=== PATIENT | female | born 1945 | race African-American/Black ===

== ENCOUNTER 2020-11-12 11:15 | Inpatient (IN) | payer OTHER, SELFPAY ==
[~2020-11-12] VITALS: Ht 162.6 cm; Wt 79.8 kg
[2020-11-12 11:18] VITALS: BP_SYST 121
[2020-11-12] MEDS ORDERED: NACL 0.9% 1,000 ML IV ONE (11:45)
[2020-11-12 12:45] LABS: ANION GAP 13 (5-15); CALCIUM 8.6 mg/dL (8.4-11.0); CHLORIDE 105 mmol/L (98-107); CREATININE 1.57 mg/dL (0.55-1.30); GLUCOSE 220 mg/dL (70-99); POTASSIUM 5.3 mmol/L (3.5-5.1); SODIUM SERUM 140 mmol/L (136-145); UREA NITROGEN, BLOOD 47 mg/dL (8-21)
[2020-11-12] MEDS ORDERED: KETOROLAC TROMETHAMINE 30 MG VIAL IVP ONE (12:45)
[2020-11-12 12:51] LABS: ALANINE AMINOTRANSFERASE 48 U/L (12-78); ALBUMIN 3.3 g/dL (3.4-4.8); ASPARTATE AMINOTRANSFERASE 21 U/L (10-37); TOTAL BILIRUBIN 0.8 mg/dL (0.0-1.0)
[2020-11-12] MEDS ORDERED: DIPHENHYDRAMINE INJ 50 MG/ML VIAL IVP ONE (13:00)
[2020-11-12] MEDS ORDERED: HALOPERIDOL LACTATE 5 MG/ML VIAL IVP ONE (13:00)
[2020-11-12 13:04] LABS: BASOPHILS # (AUTO) 0.1 K/uL (0.0-0.2); BASOPHILS % (AUTO) 0.7 % (0.0-2.0); EOSINOPHILS % (AUTO) 0.5 % (0.0-4.0); HEMATOCRIT 30.5 % (36-48); LYMPHOCYTES # (AUTO) 1.2 K/uL (1.0-5.5); LYMPHOCYTES % (AUTO) 11.8 % (20.5-51.5); MEAN CORPUSCULAR HEMOGLOBIN 29 pg (27-31); MEAN CORPUSCULAR HGB CONC 33 % (32-36); MEAN CORPUSCULAR VOLUME 90 fL (79.0-98.0); MONOCYTES # (AUTO) 0.5 K/uL (0.0-1.0); NEUTROPHILS # (AUTO) 8.7 K/uL (1.8-7.7); PLATELET COUNT (AUTO) 282 K/uL (130-430); RED BLOOD CELL COUNT(AUTO) 3.41 MIL/uL (4.2-6.2); RED CELL DISTRIBUTION WIDTH 18.4 % (9.0-15.0); WHITE BLOOD COUNT (AUTO) 10.6 K/uL (4.8-10.8)
[2020-11-12 13:59] LABS: BILIRUBIN,URINE NEGATIVE (NEGATIVE); BLOOD, URINE NEGATIVE (NEGATIVE); COLOR,URINE YELLOW (YELLOW); GLUCOSE,URINE NEGATIVE (NEGATIVE); KETONES,URINE NEGATIVE (NEGATIVE); LEUKOCYTE ESTERASE ,URINE NEGATIVE (NEGATIVE); NITRITE, URINE NEGATIVE (NEGATIVE); PH,URINE 5.5 (5.0-8.0); PROTEIN URINE NEGATIVE (NEGATIVE); UROBILINOGEN,URINE 0.2 (0.2-1.0)
[2020-11-12 14:01] LABS: CLARITY/URINE SLIGHTLY HAZY (CLEAR)
[2020-11-12 14:18] LABS: INR 1.2 (0.8-1.2); PROTHROMBIN TIME 11.9 SECS (9.5-12.5)
[2020-11-12] MEDS ORDERED: LIP40 PO (15:16)
[2020-11-12] MEDS ORDERED: LORA-258 PO (15:16)
[2020-11-12] MEDS ORDERED: DOCU-144 PO (15:16)
[2020-11-12] MEDS ORDERED: NOR10 PO (15:16)
[2020-11-12] MEDS ORDERED: ASCO500T20 PO (15:16)
[2020-11-12] MEDS ORDERED: ACET325T PO (15:16)
[2020-11-12] MEDS ORDERED: ZINC220T4 PO (15:16)
[2020-11-12] MEDS ORDERED: METO25TA6 PO (15:16)
[2020-11-12] MEDS ORDERED: VITD2000 PO (15:16)
[2020-11-12] MEDS ORDERED: APIX2.5T PO (15:16)
[2020-11-12 16:24] VITALS: BP_SYST 132
[2020-11-12 16:49] VITALS: BP_SYST 132
[2020-11-12] MEDS ORDERED: LORazepam 1 MG TABLET PO PRN (17:30)
[2020-11-12] MEDS ORDERED: SODIUM POLYSTYRENE SULFONATE 15 GM/60 ML UDBTL PO ONE (17:30)
[2020-11-12] MEDS ORDERED: DEXTROSE 50% JECT 50 ML DISP.SYRIN IVP PRN (18:30)
[2020-11-12 20:45] VITALS: BP_SYST 119
[2020-11-12] MEDS ORDERED: AZITHROMYCIN 500 MG in NS 250 ML IV SCH (21:00)
[2020-11-12] MEDS: APIXABAN 2.5 MG TABLET PO SCH (21:00)
[2020-11-12] MEDS ORDERED: cefTRIAXone 1 GM in D5W 50 ML IV SCH (21:00)
[2020-11-12] MEDS: amLODIPine BESYLATE 10 MG TABLET PO SCH (21:00)
[2020-11-12] MEDS: METOPROLOL TARTRATE 25 MG TABLET PO SCH (21:00)
[2020-11-12] MEDS: ATORVASTATIN 20 MG TABLET PO SCH (21:00)
[2020-11-12 21:17] LABS: BODY FLUID SOURCE/ TYPE PLEURAL; SOURCE/TYPE ,BODY FLUID PLEURAL
[2020-11-12 21:19] LABS: APPEARANCE,SPUN,BODY FLUID CLEAR (CLEAR)
[2020-11-12 21:21] LABS: BF APPEARANCE UNSPUN BLOODY (CLEAR); BODY FLUID COLOR RED (LT YELLOW); BODY FLUID TOTAL VOLUME 875 mL
[2020-11-12 21:22] LABS: LYMPHOCYTES, BODY FLUID 31 %; NEUTROPHIL, BODY FLUID 59 %; RBC, BODY FLUID 5197.2 /uL; WBC, BODY FLUID 1622 /uL
[2020-11-12 21:24] LABS: MONOCYTES,BODY FLUID 8 %
[2020-11-12 21:26] LABS: EOSINOPHIL, BODY FLUID 0 %
[2020-11-12] MEDS ORDERED: cefTRIAXone 1 GM IVPB PREMIX 50 ML IV ONE (21:28)
[2020-11-12] MEDS ORDERED: AZITHROMYCIN 500 MG/VIAL (ZITHROMAX) IV ONE (21:28)
[2020-11-12] MEDS ORDERED: ALBUTEROL SULFATE 0.083% 2.5 MG/3 ML VIAL.NEB INH PRN (22:45)
[2020-11-12] MEDS: INSULIN REGULAR, HUMAN 100 UNITS/ML, 10 ML VIAL (humuLIN R) SUBCUT PRN (22:56)
[2020-11-13] MEDS ORDERED: HALOPERIDOL LACTATE 5 MG/ML VIAL IM PRN (00:30)
[2020-11-13 00:45] VITALS: BP_SYST 119
[2020-11-13 07:13] LABS: BASOPHILS # (AUTO) 0.1 K/uL (0.0-0.2); BASOPHILS % (AUTO) 0.6 % (0.0-2.0); HEMOGLOBIN 10.3 g/dL (12.0-16.0); LYMPHOCYTES # (AUTO) 0.6 K/uL (1.0-5.5); LYMPHOCYTES % (AUTO) 6.5 % (20.5-51.5); MEAN CORPUSCULAR HEMOGLOBIN 29 pg (27-31); MEAN CORPUSCULAR HGB CONC 32 % (32-36); MEAN CORPUSCULAR VOLUME 90 fL (79.0-98.0); MONOCYTES # (AUTO) 0.3 K/uL (0.0-1.0); MONOCYTES % (AUTO) 2.6 % (1.7-9.3); NEUTROPHILS # (AUTO) 8.9 K/uL (1.8-7.7); NEUTROPHILS % (AUTO) 90.3 % (40.0-70.0); PLATELET COUNT (AUTO) 286 K/uL (130-430); RED BLOOD CELL COUNT(AUTO) 3.57 MIL/uL (4.2-6.2); RED CELL DISTRIBUTION WIDTH 18.9 % (9.0-15.0); WHITE BLOOD COUNT (AUTO) 9.9 K/uL (4.8-10.8)
[2020-11-13 07:35] LABS: TOTAL IRON BIND. CAPACITY 242 ug/dL (250-450)
[2020-11-13 07:38] LABS: ALANINE AMINOTRANSFERASE 50 U/L (12-78); ALBUMIN 3.2 g/dL (3.4-4.8); ANION GAP 12 (5-15); ASPARTATE AMINOTRANSFERASE 24 U/L (10-37); CALCIUM 8.4 mg/dL (8.4-11.0); CHLORIDE 109 mmol/L (98-107); CREATININE 1.48 mg/dL (0.55-1.30); GLUCOSE 165 mg/dL (70-99); PHOSPHORUS 4.7 mg/dL (2.7-4.5); POTASSIUM 5.4 mmol/L (3.5-5.1); SODIUM SERUM 143 mmol/L (136-145); TOTAL BILIRUBIN 0.6 mg/dL (0.0-1.0); UREA NITROGEN, BLOOD 49 mg/dL (8-21)
[2020-11-13 08:00] VITALS: BP_SYST 130
[2020-11-13] MEDS ORDERED: SODIUM POLYSTYRENE SULFONATE 15 GM/60 ML UDBTL ONE (08:08)
[2020-11-13] MEDS ORDERED: SODIUM POLYSTYRENE SULFONATE 15 GM/60 ML UDBTL PO ONE ×2 (08:15→08:45)
[2020-11-13] MEDS: QUEtiapine FUMARATE 25 MG TABLET PO SCH ×2 (08:51→22:03)
[2020-11-13] MEDS: CHOLECALCIFEROL (VITAMIN D3) 2,000 UNIT TABLET PO SCH (08:51)
[2020-11-13] MEDS: ASCORBIC ACID 500 MG TABLET PO SCH (08:51)
[2020-11-13] MEDS: DOCUSATE SODIUM 100 MG CAPSULE PO SCH (08:51)
[2020-11-13] MEDS: METOPROLOL TARTRATE 25 MG TABLET PO SCH ×2 (08:51→22:04)
[2020-11-13] MEDS: APIXABAN 2.5 MG TABLET PO SCH ×2 (08:52→22:05)
[2020-11-13] MEDS ORDERED: FUROSEMIDE 40 MG TABLET PO ONE (09:00)
[2020-11-13] MEDS: FLUCONAZOLE 200 mg/ NS 100 ML IV SCH (11:47)
[2020-11-13 12:01] VITALS: BP_SYST 145
[2020-11-13] MEDS: D5W 1,000 ML IV SCH (12:39)
[2020-11-13 15:05] VITALS: BP_SYST 142
[2020-11-13 20:19] VITALS: BP_SYST 154
[2020-11-13] MEDS: ATORVASTATIN 20 MG TABLET PO SCH (22:03)
[2020-11-13] MEDS: amLODIPine BESYLATE 10 MG TABLET PO SCH (22:04)
[2020-11-13] MEDS: INSULIN REGULAR, HUMAN 100 UNITS/ML, 10 ML VIAL (humuLIN R) SUBCUT PRN (22:06)
[2020-11-13] MEDS: CEFEPIME 0.5 GM in D5W 50 ML IV SCH (22:16)
[2020-11-14 00:46] VITALS: BP_SYST 152
[2020-11-14 07:19] LABS: BASOPHILS # (AUTO) 0.1 K/uL (0.0-0.2); BASOPHILS % (AUTO) 0.6 % (0.0-2.0); HEMATOCRIT 29.5 % (36-48); HEMOGLOBIN 9.4 g/dL (12.0-16.0); LYMPHOCYTES # (AUTO) 0.8 K/uL (1.0-5.5); LYMPHOCYTES % (AUTO) 5.4 % (20.5-51.5); MEAN CORPUSCULAR HEMOGLOBIN 29 pg (27-31); MEAN CORPUSCULAR HGB CONC 32 % (32-36); MEAN CORPUSCULAR VOLUME 90 fL (79.0-98.0); MONOCYTES # (AUTO) 0.7 K/uL (0.0-1.0); MONOCYTES % (AUTO) 4.6 % (1.7-9.3); NEUTROPHILS # (AUTO) 13.1 K/uL (1.8-7.7); NEUTROPHILS % (AUTO) 89.4 % (40.0-70.0); PLATELET COUNT (AUTO) 279 K/uL (130-430); RED BLOOD CELL COUNT(AUTO) 3.26 MIL/uL (4.2-6.2); RED CELL DISTRIBUTION WIDTH 19.1 % (9.0-15.0); WHITE BLOOD COUNT (AUTO) 14.7 K/uL (4.8-10.8)
[2020-11-14 07:57] LABS: ALANINE AMINOTRANSFERASE 57 U/L (12-78); ANION GAP 10 (5-15); ASPARTATE AMINOTRANSFERASE 30 U/L (10-37); CALCIUM 8.3 mg/dL (8.4-11.0); CHLORIDE 108 mmol/L (98-107); CREATININE 1.35 mg/dL (0.55-1.30); GLUCOSE 170 mg/dL (70-99); POTASSIUM 5.4 mmol/L (3.5-5.1); SODIUM SERUM 140 mmol/L (136-145); THYROID STIMULATING HORMONE 3.91 uIu/mL (0.36-3.74); TOTAL BILIRUBIN 0.7 mg/dL (0.0-1.0); UREA NITROGEN, BLOOD 52 mg/dL (8-21)
[2020-11-14 08:00] VITALS: BP_SYST 99
[2020-11-14] MEDS: DOCUSATE SODIUM 100 MG CAPSULE PO SCH (08:23)
[2020-11-14] MEDS: QUEtiapine FUMARATE 25 MG TABLET PO SCH ×2 (08:23→21:53)
[2020-11-14] MEDS: CHOLECALCIFEROL (VITAMIN D3) 2,000 UNIT TABLET PO SCH (08:23)
[2020-11-14] MEDS: ASCORBIC ACID 500 MG TABLET PO SCH (08:23)
[2020-11-14] MEDS: FUROSEMIDE 40 MG TABLET PO SCH (08:24)
[2020-11-14] MEDS: METOPROLOL TARTRATE 25 MG TABLET PO SCH ×2 (08:24→21:00)
[2020-11-14] MEDS ORDERED: SODIUM POLYSTYRENE SULFONATE 15 GM/60 ML UDBTL RC ONE (10:00)
[2020-11-14] MEDS: APIXABAN 2.5 MG TABLET PO SCH ×2 (10:21→21:52)
[2020-11-14] MEDS: CEFEPIME 0.5 GM in D5W 50 ML IV SCH ×2 (10:24→21:51)
[2020-11-14] MEDS: FLUCONAZOLE 200 mg/ NS 100 ML IV SCH (10:24)
[2020-11-14 12:14] VITALS: BP_SYST 143
[2020-11-14] MEDS: D5W 1,000 ML IV SCH (12:51)
[2020-11-14 14:42] LABS: BILIRUBIN,URINE NEGATIVE (NEGATIVE); BLOOD, URINE NEGATIVE (NEGATIVE); CLARITY/URINE CLEAR (CLEAR); COLOR,URINE YELLOW (YELLOW); GLUCOSE,URINE NEGATIVE (NEGATIVE); KETONES,URINE NEGATIVE (NEGATIVE); LEUKOCYTE ESTERASE ,URINE NEGATIVE (NEGATIVE); NITRITE, URINE NEGATIVE (NEGATIVE); PH,URINE 5.5 (5.0-8.0); PROTEIN URINE NEGATIVE (NEGATIVE); UROBILINOGEN,URINE 0.2 (0.2-1.0)
[2020-11-14 16:10] VITALS: BP_SYST 106
[2020-11-14 20:00] VITALS: BP_SYST 128
[2020-11-14] MEDS: amLODIPine BESYLATE 10 MG TABLET PO SCH (21:00)
[2020-11-14] MEDS: ATORVASTATIN 20 MG TABLET PO SCH (21:52)
[2020-11-14] MEDS: INSULIN REGULAR, HUMAN 100 UNITS/ML, 10 ML VIAL (humuLIN R) SUBCUT PRN (21:53)
[2020-11-15] MEDS: INSULIN REGULAR, HUMAN 100 UNITS/ML, 10 ML VIAL (humuLIN R) SUBCUT PRN ×2 (00:20→11:39)
[2020-11-15 01:00] VITALS: BP_SYST 151
[2020-11-15 06:38] LABS: BASOPHILS # (AUTO) 0.1 K/uL (0.0-0.2); BASOPHILS % (AUTO) 0.5 % (0.0-2.0); EOSINOPHILS % (AUTO) 0.2 % (0.0-4.0); HEMATOCRIT 31.2 % (36-48); HEMOGLOBIN 9.9 g/dL (12.0-16.0); LYMPHOCYTES # (AUTO) 0.8 K/uL (1.0-5.5); LYMPHOCYTES % (AUTO) 6.2 % (20.5-51.5); MEAN CORPUSCULAR HEMOGLOBIN 29 pg (27-31); MEAN CORPUSCULAR HGB CONC 32 % (32-36); MEAN CORPUSCULAR VOLUME 91 fL (79.0-98.0); MONOCYTES # (AUTO) 0.9 K/uL (0.0-1.0); MONOCYTES % (AUTO) 6.8 % (1.7-9.3); NEUTROPHILS % (AUTO) 86.3 % (40.0-70.0); PLATELET COUNT (AUTO) 247 K/uL (130-430); RED BLOOD CELL COUNT(AUTO) 3.44 MIL/uL (4.2-6.2); RED CELL DISTRIBUTION WIDTH 19.4 % (9.0-15.0); WHITE BLOOD COUNT (AUTO) 12.8 K/uL (4.8-10.8)
[2020-11-15 07:50] LABS: ANION GAP 12 (5-15); CALCIUM 8.6 mg/dL (8.4-11.0); CHLORIDE 108 mmol/L (98-107); CREATININE 1.38 mg/dL (0.55-1.30); GLUCOSE 165 mg/dL (70-99); POTASSIUM 4.9 mmol/L (3.5-5.1); SODIUM SERUM 141 mmol/L (136-145); UREA NITROGEN, BLOOD 54 mg/dL (8-21)
[2020-11-15 08:00] VITALS: BP_SYST 141
[2020-11-15] MEDS: CEFEPIME 0.5 GM in D5W 50 ML IV SCH ×2 (10:04→21:31)
[2020-11-15] MEDS: FUROSEMIDE 40 MG TABLET PO SCH (10:04)
[2020-11-15] MEDS: DOCUSATE SODIUM 100 MG CAPSULE PO SCH (10:04)
[2020-11-15] MEDS: METOPROLOL TARTRATE 25 MG TABLET PO SCH ×2 (10:05→21:35)
[2020-11-15] MEDS: ASCORBIC ACID 500 MG TABLET PO SCH (10:05)
[2020-11-15] MEDS: CHOLECALCIFEROL (VITAMIN D3) 2,000 UNIT TABLET PO SCH (10:05)
[2020-11-15] MEDS: QUEtiapine FUMARATE 25 MG TABLET PO SCH ×2 (10:05→21:33)
[2020-11-15] MEDS: APIXABAN 2.5 MG TABLET PO SCH ×2 (10:13→21:35)
[2020-11-15 11:26] VITALS: BP_SYST 140
[2020-11-15] MEDS: FLUCONAZOLE 200 mg/ NS 100 ML IV SCH (11:37)
[2020-11-15 15:35] VITALS: BP_SYST 139
[2020-11-15] MEDS: D5W 1,000 ML IV SCH (16:30)
[2020-11-15 20:00] VITALS: BP_SYST 138
[2020-11-15] MEDS: ATORVASTATIN 20 MG TABLET PO SCH (21:33)
[2020-11-15] MEDS: amLODIPine BESYLATE 10 MG TABLET PO SCH (21:34)
[2020-11-16] VITALS: BP_SYST 115
[2020-11-16 07:15] VITALS: BP_SYST 109
[2020-11-16 07:18] LABS: BASOPHILS % (AUTO) 0.4 % (0.0-2.0); EOSINOPHILS % (AUTO) 0.4 % (0.0-4.0); HEMATOCRIT 28.7 % (36-48); HEMOGLOBIN 9.4 g/dL (12.0-16.0); LYMPHOCYTES # (AUTO) 0.8 K/uL (1.0-5.5); MEAN CORPUSCULAR HEMOGLOBIN 29 pg (27-31); MEAN CORPUSCULAR HGB CONC 33 % (32-36); MEAN CORPUSCULAR VOLUME 90 fL (79.0-98.0); MONOCYTES # (AUTO) 0.6 K/uL (0.0-1.0); NEUTROPHILS # (AUTO) 8.8 K/uL (1.8-7.7); NEUTROPHILS % (AUTO) 85.2 % (40.0-70.0); PLATELET COUNT (AUTO) 235 K/uL (130-430); RED BLOOD CELL COUNT(AUTO) 3.19 MIL/uL (4.2-6.2); RED CELL DISTRIBUTION WIDTH 19.3 % (9.0-15.0); WHITE BLOOD COUNT (AUTO) 10.4 K/uL (4.8-10.8)
[2020-11-16 07:23] LABS: ANION GAP 12 (5-15); CALCIUM 8.4 mg/dL (8.4-11.0); CHLORIDE 109 mmol/L (98-107); CREATININE 1.26 mg/dL (0.55-1.30); GLUCOSE 135 mg/dL (70-99); POTASSIUM 4.8 mmol/L (3.5-5.1); SODIUM SERUM 144 mmol/L (136-145); UREA NITROGEN, BLOOD 53 mg/dL (8-21)
[2020-11-16 08:00] VITALS: BP_SYST 109
[2020-11-16] MEDS: ASCORBIC ACID 500 MG TABLET PO SCH (08:13)
[2020-11-16] MEDS: DOCUSATE SODIUM 100 MG CAPSULE PO SCH (08:13)
[2020-11-16] MEDS: FUROSEMIDE 40 MG TABLET PO SCH (08:14)
[2020-11-16] MEDS: QUEtiapine FUMARATE 25 MG TABLET PO SCH ×2 (08:15→21:06)
[2020-11-16] MEDS: METOPROLOL TARTRATE 25 MG TABLET PO SCH ×2 (08:15→21:06)
[2020-11-16] MEDS: APIXABAN 2.5 MG TABLET PO SCH ×2 (08:16→21:07)
[2020-11-16] MEDS: CHOLECALCIFEROL (VITAMIN D3) 2,000 UNIT TABLET PO SCH (08:19)
[2020-11-16] MEDS: CEFEPIME 0.5 GM in D5W 50 ML IV SCH ×2 (08:19→21:04)
[2020-11-16] MEDS: FLUCONAZOLE 200 mg/ NS 100 ML IV SCH (10:34)
[2020-11-16] MEDS: D5W 1,000 ML IV SCH (10:35)
[2020-11-16 12:00] VITALS: BP_SYST 139
[2020-11-16 16:00] VITALS: BP_SYST 144
[2020-11-16 20:00] VITALS: BP_SYST 149
[2020-11-16] MEDS: ATORVASTATIN 20 MG TABLET PO SCH (21:06)
[2020-11-16] MEDS: amLODIPine BESYLATE 10 MG TABLET PO SCH (21:06)
[2020-11-17 00:16] VITALS: BP_SYST 115
[2020-11-17 07:18] LABS: BASOPHILS % (AUTO) 0.5 % (0.0-2.0); EOSINOPHILS % (AUTO) 0.5 % (0.0-4.0); HEMATOCRIT 29.2 % (36-48); HEMOGLOBIN 9.4 g/dL (12.0-16.0); LYMPHOCYTES % (AUTO) 11.3 % (20.5-51.5); MEAN CORPUSCULAR HEMOGLOBIN 29 pg (27-31); MEAN CORPUSCULAR HGB CONC 32 % (32-36); MEAN CORPUSCULAR VOLUME 91 fL (79.0-98.0); MONOCYTES # (AUTO) 0.5 K/uL (0.0-1.0); MONOCYTES % (AUTO) 5.4 % (1.7-9.3); NEUTROPHILS # (AUTO) 7.5 K/uL (1.8-7.7); NEUTROPHILS % (AUTO) 82.3 % (40.0-70.0); PLATELET COUNT (AUTO) 210 K/uL (130-430); RED BLOOD CELL COUNT(AUTO) 3.21 MIL/uL (4.2-6.2); RED CELL DISTRIBUTION WIDTH 20.7 % (9.0-15.0); WHITE BLOOD COUNT (AUTO) 9.2 K/uL (4.8-10.8)
[2020-11-17 08:15] LABS: ANION GAP 9 (5-15); CALCIUM 8.8 mg/dL (8.4-11.0); CHLORIDE 109 mmol/L (98-107); CREATININE 1.27 mg/dL (0.55-1.30); GLUCOSE 162 mg/dL (70-99); POTASSIUM 4.8 mmol/L (3.5-5.1); SODIUM SERUM 144 mmol/L (136-145); UREA NITROGEN, BLOOD 50 mg/dL (8-21)
[2020-11-17 08:46] VITALS: BP_SYST 127
[2020-11-17] MEDS: DOCUSATE SODIUM 100 MG CAPSULE PO SCH (08:56)
[2020-11-17] MEDS: ASCORBIC ACID 500 MG TABLET PO SCH (08:56)
[2020-11-17] MEDS ORDERED: METOPROLOL TARTRATE 50 MG TABLET ONE (08:56)
[2020-11-17] MEDS: QUEtiapine FUMARATE 25 MG TABLET PO SCH ×2 (08:57→21:55)
[2020-11-17] MEDS: FUROSEMIDE 40 MG TABLET PO SCH (08:57)
[2020-11-17] MEDS: METOPROLOL TARTRATE 25 MG TABLET PO SCH ×2 (08:58→21:56)
[2020-11-17] MEDS: CHOLECALCIFEROL (VITAMIN D3) 2,000 UNIT TABLET PO SCH (08:59)
[2020-11-17] MEDS: APIXABAN 2.5 MG TABLET PO SCH ×2 (09:00→21:59)
[2020-11-17] MEDS: CEFEPIME 0.5 GM in D5W 50 ML IV SCH ×2 (09:05→21:54)
[2020-11-17] MEDS: FLUCONAZOLE 200 mg/ NS 100 ML IV SCH (11:30)
[2020-11-17] MEDS: D5W 1,000 ML IV SCH (11:31)
[2020-11-17 12:14] VITALS: BP_SYST 144
[2020-11-17 16:15] VITALS: BP_SYST 132
[2020-11-17 19:57] VITALS: BP_SYST 136
[2020-11-17] MEDS: ATORVASTATIN 20 MG TABLET PO SCH (21:54)
[2020-11-17] MEDS: amLODIPine BESYLATE 10 MG TABLET PO SCH (21:55)
[2020-11-18 00:37] VITALS: BP_SYST 111
[2020-11-18 06:42] LABS: BASOPHILS % (AUTO) 0.4 % (0.0-2.0); EOSINOPHILS % (AUTO) 0.3 % (0.0-4.0); HEMATOCRIT 28.8 % (36-48); HEMOGLOBIN 9.2 g/dL (12.0-16.0); LYMPHOCYTES # (AUTO) 0.6 K/uL (1.0-5.5); LYMPHOCYTES % (AUTO) 6.1 % (20.5-51.5); MEAN CORPUSCULAR HEMOGLOBIN 29 pg (27-31); MEAN CORPUSCULAR HGB CONC 32 % (32-36); MEAN CORPUSCULAR VOLUME 91 fL (79.0-98.0); MONOCYTES # (AUTO) 0.5 K/uL (0.0-1.0); MONOCYTES % (AUTO) 5.1 % (1.7-9.3); NEUTROPHILS # (AUTO) 9.2 K/uL (1.8-7.7); NEUTROPHILS % (AUTO) 88.1 % (40.0-70.0); PLATELET COUNT (AUTO) 200 K/uL (130-430); RED BLOOD CELL COUNT(AUTO) 3.17 MIL/uL (4.2-6.2); RED CELL DISTRIBUTION WIDTH 20.4 % (9.0-15.0); WHITE BLOOD COUNT (AUTO) 10.4 K/uL (4.8-10.8)
[2020-11-18 08:00] VITALS: BP_SYST 123
[2020-11-18 09:01] LABS: ANION GAP 9 (5-15); CALCIUM 8.6 mg/dL (8.4-11.0); CHLORIDE 109 mmol/L (98-107); CREATININE 1.27 mg/dL (0.55-1.30); GLUCOSE 158 mg/dL (70-99); POTASSIUM 4.7 mmol/L (3.5-5.1); SODIUM SERUM 145 mmol/L (136-145); UREA NITROGEN, BLOOD 53 mg/dL (8-21)
[2020-11-18] MEDS: QUEtiapine FUMARATE 25 MG TABLET PO SCH ×2 (09:08→22:59)
[2020-11-18] MEDS: METOPROLOL TARTRATE 25 MG TABLET PO SCH ×2 (09:08→22:58)
[2020-11-18] MEDS: APIXABAN 2.5 MG TABLET PO SCH ×2 (09:10→22:59)
[2020-11-18] MEDS: FUROSEMIDE 40 MG TABLET PO SCH (09:10)
[2020-11-18] MEDS: DOCUSATE SODIUM 100 MG CAPSULE PO SCH (09:11)
[2020-11-18] MEDS: ASCORBIC ACID 500 MG TABLET PO SCH (09:11)
[2020-11-18] MEDS: CHOLECALCIFEROL (VITAMIN D3) 2,000 UNIT TABLET PO SCH (09:12)
[2020-11-18] MEDS: CEFEPIME 0.5 GM in D5W 50 ML IV SCH ×2 (09:21→23:03)
[2020-11-18] MEDS: FLUCONAZOLE 200 mg/ NS 100 ML IV SCH (10:56)
[2020-11-18] MEDS: D5W 1,000 ML IV SCH (12:00)
[2020-11-18 12:49] VITALS: BP_SYST 114
[2020-11-18 16:16] VITALS: BP_SYST 124
[2020-11-18 20:00] VITALS: BP_SYST 129
[2020-11-18] MEDS: ATORVASTATIN 20 MG TABLET PO SCH (22:54)
[2020-11-18] MEDS: amLODIPine BESYLATE 10 MG TABLET PO SCH (22:58)
[2020-11-19 00:28] VITALS: BP_SYST 118
[2020-11-19 06:59] LABS: BASOPHILS % (AUTO) 0.4 % (0.0-2.0); EOSINOPHILS # (AUTO) 0.1 K/uL (0.0-0.4); EOSINOPHILS % (AUTO) 0.8 % (0.0-4.0); HEMATOCRIT 28.4 % (36-48); HEMOGLOBIN 9.3 g/dL (12.0-16.0); LYMPHOCYTES # (AUTO) 0.7 K/uL (1.0-5.5); LYMPHOCYTES % (AUTO) 7.1 % (20.5-51.5); MEAN CORPUSCULAR HEMOGLOBIN 29 pg (27-31); MEAN CORPUSCULAR HGB CONC 33 % (32-36); MEAN CORPUSCULAR VOLUME 90 fL (79.0-98.0); MONOCYTES # (AUTO) 0.6 K/uL (0.0-1.0); MONOCYTES % (AUTO) 6.7 % (1.7-9.3); NEUTROPHILS # (AUTO) 8.1 K/uL (1.8-7.7); PLATELET COUNT (AUTO) 192 K/uL (130-430); RED BLOOD CELL COUNT(AUTO) 3.16 MIL/uL (4.2-6.2); RED CELL DISTRIBUTION WIDTH 20.1 % (9.0-15.0); WHITE BLOOD COUNT (AUTO) 9.6 K/uL (4.8-10.8)
[2020-11-19 07:28] LABS: ANION GAP 7 (5-15); CALCIUM 9.1 mg/dL (8.4-11.0); CHLORIDE 110 mmol/L (98-107); CREATININE 1.27 mg/dL (0.55-1.30); GLUCOSE 130 mg/dL (70-99); POTASSIUM 4.7 mmol/L (3.5-5.1); SODIUM SERUM 145 mmol/L (136-145); UREA NITROGEN, BLOOD 52 mg/dL (8-21)
[2020-11-19 07:45] VITALS: BP_SYST 129
[2020-11-19] MEDS: CEFEPIME 0.5 GM in D5W 50 ML IV SCH ×2 (08:52→21:00)
[2020-11-19] MEDS: CHOLECALCIFEROL (VITAMIN D3) 2,000 UNIT TABLET PO SCH (08:54)
[2020-11-19] MEDS: QUEtiapine FUMARATE 25 MG TABLET PO SCH ×2 (08:54→21:00)
[2020-11-19] MEDS: ASCORBIC ACID 500 MG TABLET PO SCH (08:54)
[2020-11-19] MEDS: DOCUSATE SODIUM 100 MG CAPSULE PO SCH (08:54)
[2020-11-19] MEDS: FUROSEMIDE 40 MG TABLET PO SCH (08:55)
[2020-11-19] MEDS: METOPROLOL TARTRATE 25 MG TABLET PO SCH ×2 (08:55→21:00)
[2020-11-19] MEDS: APIXABAN 2.5 MG TABLET PO SCH ×2 (08:56→21:00)
[2020-11-19] MEDS: FLUCONAZOLE 200 mg/ NS 100 ML IV SCH (11:31)
[2020-11-19] MEDS: D5W 1,000 ML IV SCH (11:36)
[2020-11-19 12:00] VITALS: BP_SYST 129; BP_SYST 132
[2020-11-19] MEDS: INSULIN REGULAR, HUMAN 100 UNITS/ML, 10 ML VIAL (humuLIN R) SUBCUT PRN (16:32)
[2020-11-19 17:08] VITALS: BP_SYST 136
[2020-11-19] MEDS: amLODIPine BESYLATE 10 MG TABLET PO SCH (21:00)
[2020-11-19] MEDS: ATORVASTATIN 20 MG TABLET PO SCH (21:00)
[2020-11-20 01:33] VITALS: BP_SYST 136
[2020-11-20 06:53] LABS: BASOPHILS % (AUTO) 0.3 % (0.0-2.0); EOSINOPHILS # (AUTO) 0.1 K/uL (0.0-0.4); EOSINOPHILS % (AUTO) 0.6 % (0.0-4.0); HEMATOCRIT 28.2 % (36-48); HEMOGLOBIN 9.1 g/dL (12.0-16.0); LYMPHOCYTES # (AUTO) 0.7 K/uL (1.0-5.5); LYMPHOCYTES % (AUTO) 8.7 % (20.5-51.5); MEAN CORPUSCULAR HEMOGLOBIN 29 pg (27-31); MEAN CORPUSCULAR HGB CONC 33 % (32-36); MEAN CORPUSCULAR VOLUME 90 fL (79.0-98.0); MONOCYTES # (AUTO) 0.6 K/uL (0.0-1.0); MONOCYTES % (AUTO) 7.3 % (1.7-9.3); NEUTROPHILS # (AUTO) 6.8 K/uL (1.8-7.7); NEUTROPHILS % (AUTO) 83.1 % (40.0-70.0); PLATELET COUNT (AUTO) 172 K/uL (130-430); RED BLOOD CELL COUNT(AUTO) 3.13 MIL/uL (4.2-6.2); RED CELL DISTRIBUTION WIDTH 19.9 % (9.0-15.0); WHITE BLOOD COUNT (AUTO) 8.1 K/uL (4.8-10.8)
[2020-11-20 07:00] LABS: ANION GAP 9 (5-15); CALCIUM 8.5 mg/dL (8.4-11.0); CHLORIDE 109 mmol/L (98-107); CREATININE 1.34 mg/dL (0.55-1.30); GLUCOSE 139 mg/dL (70-99); POTASSIUM 4.3 mmol/L (3.5-5.1); SODIUM SERUM 144 mmol/L (136-145); UREA NITROGEN, BLOOD 52 mg/dL (8-21)
[2020-11-20 08:00] VITALS: BP_SYST 144
[2020-11-20] MEDS ORDERED: LORazepam 2 MG/ML VIAL IVP PRN (08:30)
[2020-11-20] MEDS: APIXABAN 2.5 MG TABLET PO SCH ×2 (08:55→21:10)
[2020-11-20] MEDS: QUEtiapine FUMARATE 25 MG TABLET PO SCH ×2 (08:56→21:10)
[2020-11-20] MEDS: ASCORBIC ACID 500 MG TABLET PO SCH (08:56)
[2020-11-20] MEDS: CHOLECALCIFEROL (VITAMIN D3) 2,000 UNIT TABLET PO SCH (08:57)
[2020-11-20] MEDS: FUROSEMIDE 40 MG TABLET PO SCH (08:59)
[2020-11-20] MEDS: DOCUSATE SODIUM 100 MG CAPSULE PO SCH (08:59)
[2020-11-20] MEDS: METOPROLOL TARTRATE 25 MG TABLET PO SCH ×2 (09:00→21:00)
[2020-11-20] MEDS: CEFEPIME 0.5 GM in D5W 50 ML IV SCH ×2 (11:05→21:25)
[2020-11-20] MEDS: FLUCONAZOLE 200 mg/ NS 100 ML IV SCH (11:43)
[2020-11-20] MEDS: D5W 1,000 ML IV SCH ×2 (11:45→21:12)
[2020-11-20 12:41] VITALS: BP_SYST 133
[2020-11-20 16:00] VITALS: BP_SYST 121
[2020-11-20 20:00] VITALS: BP_SYST 106; BP_SYST 117
[2020-11-20] MEDS ORDERED: CEFEPIME 1 GM/VIAL (MAXIPIME) ONE (21:02)
[2020-11-20] MEDS: ATORVASTATIN 20 MG TABLET PO SCH (21:10)
[2020-11-20] MEDS: INSULIN REGULAR, HUMAN 100 UNITS/ML, 10 ML VIAL (humuLIN R) SUBCUT PRN (21:11)
[2020-11-20] MEDS: amLODIPine BESYLATE 10 MG TABLET PO SCH (21:12)
[2020-11-21 00:44] VITALS: BP_SYST 131
[2020-11-21 08:00] VITALS: BP_SYST 157
[2020-11-21 08:29] LABS: BASOPHILS % (AUTO) 0.3 % (0.0-2.0); EOSINOPHILS % (AUTO) 0.3 % (0.0-4.0); HEMATOCRIT 29.5 % (36-48); HEMOGLOBIN 9.3 g/dL (12.0-16.0); LYMPHOCYTES # (AUTO) 0.4 K/uL (1.0-5.5); LYMPHOCYTES % (AUTO) 5.4 % (20.5-51.5); MEAN CORPUSCULAR HEMOGLOBIN 29 pg (27-31); MEAN CORPUSCULAR HGB CONC 32 % (32-36); MEAN CORPUSCULAR VOLUME 91 fL (79.0-98.0); MONOCYTES # (AUTO) 0.5 K/uL (0.0-1.0); NEUTROPHILS # (AUTO) 7.2 K/uL (1.8-7.7); PLATELET COUNT (AUTO) 158 K/uL (130-430); RED BLOOD CELL COUNT(AUTO) 3.23 MIL/uL (4.2-6.2); RED CELL DISTRIBUTION WIDTH 20.6 % (9.0-15.0); WHITE BLOOD COUNT (AUTO) 8.2 K/uL (4.8-10.8)
[2020-11-21 08:58] LABS: ANION GAP 9 (5-15); CALCIUM 8.6 mg/dL (8.4-11.0); CHLORIDE 107 mmol/L (98-107); CREATININE 1.39 mg/dL (0.55-1.30); GLUCOSE 158 mg/dL (70-99); POTASSIUM 4.8 mmol/L (3.5-5.1); SODIUM SERUM 142 mmol/L (136-145); UREA NITROGEN, BLOOD 56 mg/dL (8-21)
[2020-11-21] MEDS: CEFEPIME 0.5 GM in D5W 50 ML IV SCH ×2 (10:20→20:28)
[2020-11-21] MEDS: ASCORBIC ACID 500 MG TABLET PO SCH (10:21)
[2020-11-21] MEDS: CHOLECALCIFEROL (VITAMIN D3) 2,000 UNIT TABLET PO SCH (10:21)
[2020-11-21] MEDS: APIXABAN 2.5 MG TABLET PO SCH ×2 (10:21→20:30)
[2020-11-21] MEDS: DOCUSATE SODIUM 100 MG CAPSULE PO SCH (10:21)
[2020-11-21] MEDS: QUEtiapine FUMARATE 25 MG TABLET PO SCH ×2 (10:22→20:28)
[2020-11-21] MEDS: FUROSEMIDE 40 MG TABLET PO SCH (10:22)
[2020-11-21] MEDS: METOPROLOL TARTRATE 25 MG TABLET PO SCH ×2 (10:23→20:31)
[2020-11-21] MEDS: FLUCONAZOLE 200 mg/ NS 100 ML IV SCH (12:14)
[2020-11-21 12:39] VITALS: BP_SYST 118
[2020-11-21 16:17] VITALS: BP_SYST 138
[2020-11-21 20:00] VITALS: BP_SYST 106
[2020-11-21] MEDS: ATORVASTATIN 20 MG TABLET PO SCH (20:28)
[2020-11-21] MEDS: amLODIPine BESYLATE 10 MG TABLET PO SCH (20:31)
[2020-11-21] MEDS: D5W 1,000 ML IV SCH (23:04)
[2020-11-22] VITALS: BP_SYST 114
[2020-11-22 07:38] LABS: BASOPHILS % (AUTO) 0.3 % (0.0-2.0); EOSINOPHILS # (AUTO) 0.1 K/uL (0.0-0.4); EOSINOPHILS % (AUTO) 0.9 % (0.0-4.0); HEMATOCRIT 28.2 % (36-48); HEMOGLOBIN 9.1 g/dL (12.0-16.0); LYMPHOCYTES # (AUTO) 0.6 K/uL (1.0-5.5); LYMPHOCYTES % (AUTO) 8.2 % (20.5-51.5); MEAN CORPUSCULAR HEMOGLOBIN 29 pg (27-31); MEAN CORPUSCULAR HGB CONC 32 % (32-36); MEAN CORPUSCULAR VOLUME 91 fL (79.0-98.0); MONOCYTES # (AUTO) 0.5 K/uL (0.0-1.0); MONOCYTES % (AUTO) 6.3 % (1.7-9.3); NEUTROPHILS # (AUTO) 6.3 K/uL (1.8-7.7); NEUTROPHILS % (AUTO) 84.3 % (40.0-70.0); PLATELET COUNT (AUTO) 144 K/uL (130-430); RED BLOOD CELL COUNT(AUTO) 3.11 MIL/uL (4.2-6.2); RED CELL DISTRIBUTION WIDTH 20.8 % (9.0-15.0); WHITE BLOOD COUNT (AUTO) 7.5 K/uL (4.8-10.8)
[2020-11-22 08:00] VITALS: BP_SYST 119
[2020-11-22 08:11] LABS: CALCIUM 8.6 mg/dL (8.4-11.0); CHLORIDE 107 mmol/L (98-107); CREATININE 1.34 mg/dL (0.55-1.30); GLUCOSE 145 mg/dL (70-99); POTASSIUM 4.5 mmol/L (3.5-5.1); SODIUM SERUM 140 mmol/L (136-145); UREA NITROGEN, BLOOD 54 mg/dL (8-21)
[2020-11-22] MEDS: CEFEPIME 0.5 GM in D5W 50 ML IV SCH ×2 (08:27→20:59)
[2020-11-22 08:28] LABS: ANION GAP 11 (5-15)
[2020-11-22] MEDS: METOPROLOL TARTRATE 25 MG TABLET PO SCH ×2 (09:00→21:00)
[2020-11-22] MEDS: DOCUSATE SODIUM 100 MG CAPSULE PO SCH (09:00)
[2020-11-22] MEDS: CHOLECALCIFEROL (VITAMIN D3) 2,000 UNIT TABLET PO SCH (09:00)
[2020-11-22] MEDS: FUROSEMIDE 40 MG TABLET PO SCH (09:00)
[2020-11-22] MEDS: APIXABAN 2.5 MG TABLET PO SCH ×2 (09:00→21:00)
[2020-11-22] MEDS: ASCORBIC ACID 500 MG TABLET PO SCH (09:00)
[2020-11-22] MEDS: QUEtiapine FUMARATE 25 MG TABLET PO SCH ×2 (09:00→21:00)
[2020-11-22] MEDS: FLUCONAZOLE 200 mg/ NS 100 ML IV SCH (11:05)
[2020-11-22 11:35] VITALS: BP_SYST 127
[2020-11-22 15:30] VITALS: BP_SYST 116
[2020-11-22 15:57] VITALS: BP_SYST 127
[2020-11-22] MEDS: INSULIN REGULAR, HUMAN 100 UNITS/ML, 10 ML VIAL (humuLIN R) SUBCUT PRN ×2 (17:30→21:10)
[2020-11-22] MEDS: ATORVASTATIN 20 MG TABLET PO SCH (21:00)
[2020-11-22] MEDS: amLODIPine BESYLATE 10 MG TABLET PO SCH (21:00)
[2020-11-23] MEDS: D5W 1,000 ML IV SCH (00:29)
[2020-11-23 01:25] VITALS: BP_SYST 102
[2020-11-23 07:43] LABS: BASOPHILS % (AUTO) 0.5 % (0.0-2.0); EOSINOPHILS % (AUTO) 0.4 % (0.0-4.0); HEMATOCRIT 27.4 % (36-48); HEMOGLOBIN 8.8 g/dL (12.0-16.0); LYMPHOCYTES # (AUTO) 0.4 K/uL (1.0-5.5); LYMPHOCYTES % (AUTO) 4.9 % (20.5-51.5); MEAN CORPUSCULAR HEMOGLOBIN 29 pg (27-31); MEAN CORPUSCULAR HGB CONC 32 % (32-36); MEAN CORPUSCULAR VOLUME 91 fL (79.0-98.0); MONOCYTES # (AUTO) 0.4 K/uL (0.0-1.0); NEUTROPHILS # (AUTO) 7.7 K/uL (1.8-7.7); NEUTROPHILS % (AUTO) 89.2 % (40.0-70.0); PLATELET COUNT (AUTO) 133 K/uL (130-430); RED BLOOD CELL COUNT(AUTO) 3.01 MIL/uL (4.2-6.2); RED CELL DISTRIBUTION WIDTH 20.2 % (9.0-15.0); WHITE BLOOD COUNT (AUTO) 8.6 K/uL (4.8-10.8)
[2020-11-23 08:00] VITALS: BP_SYST 108
[2020-11-23 08:19] LABS: ANION GAP 9 (5-15); CALCIUM 8.5 mg/dL (8.4-11.0); CHLORIDE 104 mmol/L (98-107); CREATININE 1.43 mg/dL (0.55-1.30); GLUCOSE 178 mg/dL (70-99); POTASSIUM 4.6 mmol/L (3.5-5.1); SODIUM SERUM 138 mmol/L (136-145); UREA NITROGEN, BLOOD 55 mg/dL (8-21)
[2020-11-23] MEDS: CEFEPIME 0.5 GM in D5W 50 ML IV SCH ×2 (08:26→20:49)
[2020-11-23] MEDS: DOCUSATE SODIUM 100 MG CAPSULE PO SCH (08:37)
[2020-11-23] MEDS: APIXABAN 2.5 MG TABLET PO SCH ×2 (08:37→21:00)
[2020-11-23] MEDS: QUEtiapine FUMARATE 25 MG TABLET PO SCH ×2 (08:38→21:00)
[2020-11-23] MEDS: MEGESTROL ACETATE 40 MG TABLET PO SCH ×2 (08:38→21:00)
[2020-11-23] MEDS: METOPROLOL TARTRATE 25 MG TABLET PO SCH (08:38)
[2020-11-23] MEDS: FUROSEMIDE 40 MG TABLET PO SCH (08:38)
[2020-11-23] MEDS: CHOLECALCIFEROL (VITAMIN D3) 2,000 UNIT TABLET PO SCH (08:39)
[2020-11-23] MEDS: ASCORBIC ACID 500 MG TABLET PO SCH (08:39)
[2020-11-23] MEDS: FLUCONAZOLE 200 mg/ NS 100 ML IV SCH (11:40)
[2020-11-23 12:00] VITALS: BP_SYST 110
[2020-11-23 16:00] VITALS: BP_SYST 105
[2020-11-23 20:00] VITALS: BP_SYST 124
[2020-11-23] MEDS: ATORVASTATIN 20 MG TABLET PO SCH (21:00)
[2020-11-23] MEDS: amLODIPine BESYLATE 10 MG TABLET PO SCH (21:00)
[2020-11-24 01:11] VITALS: BP_SYST 113
[2020-11-24 06:51] LABS: BASOPHILS % (AUTO) 0.2 % (0.0-2.0); EOSINOPHILS # (AUTO) 0.1 K/uL (0.0-0.4); EOSINOPHILS % (AUTO) 0.7 % (0.0-4.0); HEMATOCRIT 27.9 % (36-48); HEMOGLOBIN 8.6 g/dL (12.0-16.0); LYMPHOCYTES # (AUTO) 0.7 K/uL (1.0-5.5); LYMPHOCYTES % (AUTO) 7.7 % (20.5-51.5); MEAN CORPUSCULAR HEMOGLOBIN 29 pg (27-31); MEAN CORPUSCULAR HGB CONC 31 % (32-36); MEAN CORPUSCULAR VOLUME 93 fL (79.0-98.0); MONOCYTES # (AUTO) 0.9 K/uL (0.0-1.0); MONOCYTES % (AUTO) 9.1 % (1.7-9.3); NEUTROPHILS # (AUTO) 7.7 K/uL (1.8-7.7); NEUTROPHILS % (AUTO) 82.3 % (40.0-70.0); PLATELET COUNT (AUTO) 123 K/uL (130-430); WHITE BLOOD COUNT (AUTO) 9.4 K/uL (4.8-10.8)
[2020-11-24 07:19] LABS: ANION GAP 8 (5-15); CALCIUM 8.7 mg/dL (8.4-11.0); CHLORIDE 101 mmol/L (98-107); GLUCOSE 130 mg/dL (70-99); POTASSIUM 4.6 mmol/L (3.5-5.1); SODIUM SERUM 132 mmol/L (136-145); UREA NITROGEN, BLOOD 55 mg/dL (8-21)
[2020-11-24 07:40] VITALS: BP_SYST 119
[2020-11-24] MEDS: APIXABAN 2.5 MG TABLET PO SCH ×2 (09:00→21:12)
[2020-11-24] MEDS: MEGESTROL ACETATE 40 MG TABLET PO SCH ×2 (09:22→21:09)
[2020-11-24] MEDS: ASCORBIC ACID 500 MG TABLET PO SCH (09:22)
[2020-11-24] MEDS: FUROSEMIDE 40 MG TABLET PO SCH (09:22)
[2020-11-24] MEDS: QUEtiapine FUMARATE 25 MG TABLET PO SCH ×2 (09:22→21:10)
[2020-11-24] MEDS: DOCUSATE SODIUM 100 MG CAPSULE PO SCH (09:22)
[2020-11-24] MEDS: CHOLECALCIFEROL (VITAMIN D3) 2,000 UNIT TABLET PO SCH (09:24)
[2020-11-24] MEDS: CEFEPIME 0.5 GM in D5W 50 ML IV SCH ×2 (09:28→21:09)
[2020-11-24] MEDS: FLUCONAZOLE 200 mg/ NS 100 ML IV SCH (11:37)
[2020-11-24 12:00] VITALS: BP_SYST 127
[2020-11-24 16:45] VITALS: BP_SYST 114
[2020-11-24] MEDS: D5W 1,000 ML IV SCH (16:50)
[2020-11-24 20:43] VITALS: BP_SYST 119
[2020-11-24] MEDS: ATORVASTATIN 20 MG TABLET PO SCH (21:10)
[2020-11-24] MEDS: amLODIPine BESYLATE 10 MG TABLET PO SCH (21:11)
[2020-11-24 23:56] VITALS: BP_SYST 103
[2020-11-25] VITALS (30 sets, daily range): BP systolic 83–118
[2020-11-25] MEDS ORDERED: LORazepam 2 MG/ML VIAL IVP PRN (00:15)
[2020-11-25] MEDS ORDERED: NOREPINEPHRINE 4 MG/4 ML VIAL IV ONE (01:21)
[2020-11-25] MEDS: PROPOFOL DRIP 100 ML IV PRN (01:33)
[2020-11-25] MEDS: NOREPINEPHRINE BITARTRATE 4 MG in D5W 246 ML IV PRN (01:58)
[2020-11-25 05:35] LABS: BASOPHILS % (AUTO) 0.2 % (0.0-2.0); EOSINOPHILS % (AUTO) 0.1 % (0.0-4.0); HEMATOCRIT 26.2 % (36-48); HEMOGLOBIN 8.3 g/dL (12.0-16.0); LYMPHOCYTES # (AUTO) 0.5 K/uL (1.0-5.5); LYMPHOCYTES % (AUTO) 3.8 % (20.5-51.5); MEAN CORPUSCULAR HEMOGLOBIN 29 pg (27-31); MEAN CORPUSCULAR HGB CONC 32 % (32-36); MEAN CORPUSCULAR VOLUME 90 fL (79.0-98.0); MONOCYTES # (AUTO) 0.6 K/uL (0.0-1.0); MONOCYTES % (AUTO) 4.4 % (1.7-9.3); NEUTROPHILS # (AUTO) 11.7 K/uL (1.8-7.7); NEUTROPHILS % (AUTO) 91.5 % (40.0-70.0); PLATELET COUNT (AUTO) 122 K/uL (130-430); RED CELL DISTRIBUTION WIDTH 20.4 % (9.0-15.0); WHITE BLOOD COUNT (AUTO) 12.8 K/uL (4.8-10.8)
[2020-11-25 05:48] LABS: ANION GAP 8 (5-15); CALCIUM 8.2 mg/dL (8.4-11.0); CHLORIDE 101 mmol/L (98-107); CREATININE 1.59 mg/dL (0.55-1.30); GLUCOSE 197 mg/dL (70-99); POTASSIUM 5.1 mmol/L (3.5-5.1); SODIUM SERUM 134 mmol/L (136-145); UREA NITROGEN, BLOOD 58 mg/dL (8-21)
[2020-11-25] MEDS: CEFEPIME 0.5 GM in D5W 50 ML IV SCH ×2 (08:07→21:45)
[2020-11-25] MEDS: DOCUSATE SODIUM 100 MG CAPSULE PO SCH (08:07)
[2020-11-25] MEDS: APIXABAN 2.5 MG TABLET PO SCH ×2 (08:08→21:45)
[2020-11-25 08:49] LABS: INR 1.2 (0.8-1.2); PROTHROMBIN TIME 12.7 SECS (9.5-12.5)
[2020-11-25] MEDS: QUEtiapine FUMARATE 25 MG TABLET PO SCH ×2 (08:51→21:46)
[2020-11-25] MEDS: FUROSEMIDE 40 MG TABLET PO SCH (08:51)
[2020-11-25] MEDS: MEGESTROL ACETATE 40 MG TABLET PO SCH ×2 (08:51→21:45)
[2020-11-25] MEDS: ASCORBIC ACID 500 MG TABLET PO SCH (08:51)
[2020-11-25] MEDS: CHOLECALCIFEROL (VITAMIN D3) 2,000 UNIT TABLET PO SCH (08:51)
[2020-11-25] MEDS: FLUCONAZOLE 200 mg/ NS 100 ML IV SCH (11:00)
[2020-11-25] MEDS: D5W 1,000 ML IV SCH (12:42)
[2020-11-25] MEDS: amLODIPine BESYLATE 10 MG TABLET PO SCH (21:00)
[2020-11-25] MEDS: ATORVASTATIN 20 MG TABLET PO SCH (21:45)
[2020-11-26] VITALS (28 sets, daily range): BP systolic 88–115
[2020-11-26 06:38] LABS: ANION GAP 9 (5-15); CALCIUM 8.2 mg/dL (8.4-11.0); CHLORIDE 100 mmol/L (98-107); CREATININE 1.84 mg/dL (0.55-1.30); GLUCOSE 149 mg/dL (70-99); POTASSIUM 4.3 mmol/L (3.5-5.1); SODIUM SERUM 132 mmol/L (136-145); UREA NITROGEN, BLOOD 59 mg/dL (8-21)
[2020-11-26 06:45] LABS: BASOPHILS % (AUTO) 0.2 % (0.0-2.0); EOSINOPHILS % (AUTO) 0.5 % (0.0-4.0); HEMATOCRIT 26.5 % (36-48); HEMOGLOBIN 8.7 g/dL (12.0-16.0); LYMPHOCYTES # (AUTO) 0.5 K/uL (1.0-5.5); LYMPHOCYTES % (AUTO) 5.9 % (20.5-51.5); MEAN CORPUSCULAR HEMOGLOBIN 29 pg (27-31); MEAN CORPUSCULAR HGB CONC 33 % (32-36); MEAN CORPUSCULAR VOLUME 89 fL (79.0-98.0); MONOCYTES # (AUTO) 0.4 K/uL (0.0-1.0); MONOCYTES % (AUTO) 4.8 % (1.7-9.3); NEUTROPHILS # (AUTO) 7.9 K/uL (1.8-7.7); NEUTROPHILS % (AUTO) 88.6 % (40.0-70.0); PLATELET COUNT (AUTO) 127 K/uL (130-430); RED BLOOD CELL COUNT(AUTO) 2.99 MIL/uL (4.2-6.2); RED CELL DISTRIBUTION WIDTH 21.2 % (9.0-15.0)
[2020-11-26] MEDS: MEGESTROL ACETATE 40 MG TABLET PO SCH (08:04)
[2020-11-26] MEDS: APIXABAN 2.5 MG TABLET PO SCH ×2 (08:04→21:00)
[2020-11-26] MEDS: ASCORBIC ACID 500 MG TABLET PO SCH (08:04)
[2020-11-26] MEDS: CHOLECALCIFEROL (VITAMIN D3) 2,000 UNIT TABLET PO SCH (08:04)
[2020-11-26] MEDS: DOCUSATE SODIUM 100 MG CAPSULE PO SCH (08:04)
[2020-11-26] MEDS: QUEtiapine FUMARATE 25 MG TABLET PO SCH ×2 (08:04→21:00)
[2020-11-26] MEDS: FUROSEMIDE 40 MG TABLET PO SCH (08:04)
[2020-11-26] MEDS: CEFEPIME 0.5 GM in D5W 50 ML IV SCH ×2 (08:05→21:49)
[2020-11-26 08:33] LABS: WHITE BLOOD COUNT (AUTO) 8.9 K/uL (4.8-10.8)
[2020-11-26] MEDS: NOREPINEPHRINE BITARTRATE 4 MG in D5W 246 ML IV PRN (09:03)
[2020-11-26] MEDS: D5W 1,000 ML IV SCH (09:04)
[2020-11-26] MEDS: D5/0.45 NS 1,000 ML IV SCH (10:36)
[2020-11-26] MEDS: FLUCONAZOLE 200 mg/ NS 100 ML IV SCH (10:46)
[2020-11-26] MEDS: amLODIPine BESYLATE 10 MG TABLET PO SCH (21:00)
[2020-11-26] MEDS: ATORVASTATIN 20 MG TABLET PO SCH (21:00)
[2020-11-26] MEDS: INSULIN REGULAR, HUMAN 100 UNITS/ML, 10 ML VIAL (humuLIN R) SUBCUT PRN (22:51)
[2020-11-27] VITALS (27 sets, daily range): BP systolic 88–131
[2020-11-27 06:59] LABS: BASOPHILS % (AUTO) 0.4 % (0.0-2.0); EOSINOPHILS # (AUTO) 0.1 K/uL (0.0-0.4); EOSINOPHILS % (AUTO) 0.5 % (0.0-4.0); HEMATOCRIT 24.9 % (36-48); HEMOGLOBIN 8.2 g/dL (12.0-16.0); LYMPHOCYTES % (AUTO) 8.8 % (20.5-51.5); MEAN CORPUSCULAR HEMOGLOBIN 29 pg (27-31); MEAN CORPUSCULAR HGB CONC 33 % (32-36); MEAN CORPUSCULAR VOLUME 88 fL (79.0-98.0); NEUTROPHILS # (AUTO) 8.8 K/uL (1.8-7.7); NEUTROPHILS % (AUTO) 81.3 % (40.0-70.0); PLATELET COUNT (AUTO) 126 K/uL (130-430); RED BLOOD CELL COUNT(AUTO) 2.82 MIL/uL (4.2-6.2); RED CELL DISTRIBUTION WIDTH 21.7 % (9.0-15.0); WHITE BLOOD COUNT (AUTO) 10.9 K/uL (4.8-10.8)
[2020-11-27 07:20] LABS: ANION GAP 9 (5-15); CALCIUM 7.8 mg/dL (8.4-11.0); CHLORIDE 99 mmol/L (98-107); GLUCOSE 166 mg/dL (70-99); POTASSIUM 4.3 mmol/L (3.5-5.1); SODIUM SERUM 130 mmol/L (136-145); UREA NITROGEN, BLOOD 66 mg/dL (8-21)
[2020-11-27] MEDS: CEFEPIME 0.5 GM in D5W 50 ML IV SCH ×2 (08:17→20:52)
[2020-11-27 08:18] LABS: CREATININE 2.13 mg/dL (0.55-1.30)
[2020-11-27] MEDS: CHOLECALCIFEROL (VITAMIN D3) 2,000 UNIT TABLET PO SCH (08:18)
[2020-11-27] MEDS: ASCORBIC ACID 500 MG TABLET PO SCH (08:18)
[2020-11-27] MEDS: DOCUSATE SODIUM 100 MG CAPSULE PO SCH (08:18)
[2020-11-27] MEDS: D5/0.45 NS 1,000 ML IV SCH (08:18)
[2020-11-27] MEDS: QUEtiapine FUMARATE 25 MG TABLET PO SCH ×2 (08:18→20:52)
[2020-11-27] MEDS: APIXABAN 2.5 MG TABLET PO SCH ×2 (08:19→20:53)
[2020-11-27] MEDS: FLUCONAZOLE 200 mg/ NS 100 ML IV SCH (10:24)
[2020-11-27] MEDS: INSULIN REGULAR, HUMAN 100 UNITS/ML, 10 ML VIAL (humuLIN R) SUBCUT PRN (11:30)
[2020-11-27] MEDS: amLODIPine BESYLATE 10 MG TABLET PO SCH (20:41)
[2020-11-27] MEDS: ATORVASTATIN 20 MG TABLET PO SCH (20:52)
[2020-11-28] VITALS (29 sets, daily range): BP systolic 102–137
[2020-11-28 06:25] LABS: BASOPHILS # (AUTO) 0.2 K/uL (0.0-0.2); BASOPHILS % (AUTO) 2.3 % (0.0-2.0); EOSINOPHILS # (AUTO) 0.1 K/uL (0.0-0.4); EOSINOPHILS % (AUTO) 0.7 % (0.0-4.0); HEMATOCRIT 25.8 % (36-48); HEMOGLOBIN 8.4 g/dL (12.0-16.0); LYMPHOCYTES # (AUTO) 0.7 K/uL (1.0-5.5); LYMPHOCYTES % (AUTO) 7.3 % (20.5-51.5); MEAN CORPUSCULAR HEMOGLOBIN 29 pg (27-31); MEAN CORPUSCULAR HGB CONC 33 % (32-36); MEAN CORPUSCULAR VOLUME 88 fL (79.0-98.0); MONOCYTES # (AUTO) 0.8 K/uL (0.0-1.0); MONOCYTES % (AUTO) 8.1 % (1.7-9.3); NEUTROPHILS # (AUTO) 7.9 K/uL (1.8-7.7); NEUTROPHILS % (AUTO) 81.6 % (40.0-70.0); PLATELET COUNT (AUTO) 128 K/uL (130-430); RED BLOOD CELL COUNT(AUTO) 2.92 MIL/uL (4.2-6.2); RED CELL DISTRIBUTION WIDTH 21.2 % (9.0-15.0); WHITE BLOOD COUNT (AUTO) 9.6 K/uL (4.8-10.8)
[2020-11-28 06:37] LABS: ANION GAP 8 (5-15); CALCIUM 7.9 mg/dL (8.4-11.0); CHLORIDE 100 mmol/L (98-107); CREATININE 2.23 mg/dL (0.55-1.30); GLUCOSE 185 mg/dL (70-99); POTASSIUM 4.5 mmol/L (3.5-5.1); SODIUM SERUM 132 mmol/L (136-145); UREA NITROGEN, BLOOD 70 mg/dL (8-21)
[2020-11-28] MEDS: CHOLECALCIFEROL (VITAMIN D3) 2,000 UNIT TABLET PO SCH (08:24)
[2020-11-28] MEDS: QUEtiapine FUMARATE 25 MG TABLET PO SCH ×2 (08:24→20:46)
[2020-11-28] MEDS: DOCUSATE SODIUM 100 MG CAPSULE PO SCH (08:24)
[2020-11-28] MEDS: ASCORBIC ACID 500 MG TABLET PO SCH (08:24)
[2020-11-28] MEDS: APIXABAN 2.5 MG TABLET PO SCH ×2 (08:25→20:50)
[2020-11-28] MEDS: CEFEPIME 0.5 GM in D5W 50 ML IV SCH ×2 (08:25→20:46)
[2020-11-28] MEDS: FLUCONAZOLE 200 mg/ NS 100 ML IV SCH (11:51)
[2020-11-28] MEDS: INSULIN REGULAR, HUMAN 100 UNITS/ML, 10 ML VIAL (humuLIN R) SUBCUT PRN ×2 (11:59→17:46)
[2020-11-28] MEDS: ATORVASTATIN 20 MG TABLET PO SCH (20:46)
[2020-11-28] MEDS: amLODIPine BESYLATE 10 MG TABLET PO SCH (21:00)
[2020-11-29] VITALS (28 sets, daily range): BP systolic 97–149
[2020-11-29] MEDS: NOREPINEPHRINE BITARTRATE 4 MG in D5W 246 ML IV PRN (01:00)
[2020-11-29 06:15] LABS: BASOPHILS % (AUTO) 0.3 % (0.0-2.0); EOSINOPHILS % (AUTO) 0.2 % (0.0-4.0); HEMATOCRIT 25.8 % (36-48); HEMOGLOBIN 8.3 g/dL (12.0-16.0); LYMPHOCYTES # (AUTO) 0.7 K/uL (1.0-5.5); LYMPHOCYTES % (AUTO) 4.7 % (20.5-51.5); MEAN CORPUSCULAR HEMOGLOBIN 29 pg (27-31); MEAN CORPUSCULAR HGB CONC 32 % (32-36); MEAN CORPUSCULAR VOLUME 90 fL (79.0-98.0); MONOCYTES # (AUTO) 0.9 K/uL (0.0-1.0); MONOCYTES % (AUTO) 6.5 % (1.7-9.3); NEUTROPHILS # (AUTO) 12.6 K/uL (1.8-7.7); NEUTROPHILS % (AUTO) 88.3 % (40.0-70.0); PLATELET COUNT (AUTO) 148 K/uL (130-430); RED BLOOD CELL COUNT(AUTO) 2.88 MIL/uL (4.2-6.2); WHITE BLOOD COUNT (AUTO) 14.2 K/uL (4.8-10.8)
[2020-11-29] MEDS: INSULIN REGULAR, HUMAN 100 UNITS/ML, 10 ML VIAL (humuLIN R) SUBCUT PRN ×2 (06:21→13:39)
[2020-11-29 06:56] LABS: ANION GAP 9 (5-15); CALCIUM 8.1 mg/dL (8.4-11.0); CHLORIDE 100 mmol/L (98-107); CREATININE 2.04 mg/dL (0.55-1.30); GLUCOSE 241 mg/dL (70-99); POTASSIUM 4.7 mmol/L (3.5-5.1); SODIUM SERUM 132 mmol/L (136-145); UREA NITROGEN, BLOOD 73 mg/dL (8-21)
[2020-11-29] MEDS: ASCORBIC ACID 500 MG TABLET PO SCH (10:25)
[2020-11-29] MEDS: DOCUSATE SODIUM 100 MG CAPSULE PO SCH (10:25)
[2020-11-29] MEDS: CHOLECALCIFEROL (VITAMIN D3) 2,000 UNIT TABLET PO SCH (10:25)
[2020-11-29] MEDS: QUEtiapine FUMARATE 25 MG TABLET PO SCH ×2 (10:25→21:01)
[2020-11-29] MEDS: CEFEPIME 0.5 GM in D5W 50 ML IV SCH ×2 (10:25→21:00)
[2020-11-29] MEDS: APIXABAN 2.5 MG TABLET PO SCH ×2 (10:26→21:01)
[2020-11-29] MEDS: FLUCONAZOLE 200 mg/ NS 100 ML IV SCH (12:01)
[2020-11-29] MEDS: ATORVASTATIN 20 MG TABLET PO SCH (21:00)
[2020-11-29] MEDS: amLODIPine BESYLATE 10 MG TABLET PO SCH (21:00)
[2020-11-29] MEDS: PROPOFOL DRIP 100 ML IV PRN (21:07)
[2020-11-30] VITALS (32 sets, daily range): BP systolic 99–126
[2020-11-30 06:34] LABS: BASOPHILS % (AUTO) 0.4 % (0.0-2.0); EOSINOPHILS # (AUTO) 0.1 K/uL (0.0-0.4); LYMPHOCYTES # (AUTO) 0.7 K/uL (1.0-5.5); LYMPHOCYTES % (AUTO) 9.2 % (20.5-51.5); MEAN CORPUSCULAR HEMOGLOBIN 29 pg (27-31); MEAN CORPUSCULAR HGB CONC 33 % (32-36); MEAN CORPUSCULAR VOLUME 89 fL (79.0-98.0); MONOCYTES # (AUTO) 0.8 K/uL (0.0-1.0); MONOCYTES % (AUTO) 10.5 % (1.7-9.3); NEUTROPHILS # (AUTO) 6.1 K/uL (1.8-7.7); NEUTROPHILS % (AUTO) 78.9 % (40.0-70.0); PLATELET COUNT (AUTO) 108 K/uL (130-430); RED BLOOD CELL COUNT(AUTO) 2.31 MIL/uL (4.2-6.2); RED CELL DISTRIBUTION WIDTH 21.4 % (9.0-15.0); WHITE BLOOD COUNT (AUTO) 7.8 K/uL (4.8-10.8)
[2020-11-30 07:08] LABS: ANION GAP 7 (5-15); CALCIUM 7.4 mg/dL (8.4-11.0); CHLORIDE 101 mmol/L (98-107); CREATININE 1.95 mg/dL (0.55-1.30); GLUCOSE 314 mg/dL (70-99); POTASSIUM 4.4 mmol/L (3.5-5.1); SODIUM SERUM 132 mmol/L (136-145); UREA NITROGEN, BLOOD 73 mg/dL (8-21)
[2020-11-30 07:38] LABS: HEMOGLOBIN 6.7 g/dL (12.0-16.0)
[2020-11-30 07:40] LABS: HEMATOCRIT 20.4 % (36-48)
[2020-11-30] MEDS: CHOLECALCIFEROL (VITAMIN D3) 2,000 UNIT TABLET PO SCH (09:12)
[2020-11-30] MEDS: DOCUSATE SODIUM 100 MG CAPSULE PO SCH (09:12)
[2020-11-30] MEDS: ASCORBIC ACID 500 MG TABLET PO SCH (09:12)
[2020-11-30] MEDS: APIXABAN 2.5 MG TABLET PO SCH ×2 (09:13→21:26)
[2020-11-30] MEDS: QUEtiapine FUMARATE 25 MG TABLET PO SCH ×2 (09:13→21:24)
[2020-11-30] MEDS: CEFEPIME 0.5 GM in D5W 50 ML IV SCH ×2 (09:16→21:25)
[2020-11-30] MEDS: D5/0.45 NS 1,000 ML IV SCH (09:28)
[2020-11-30] MEDS: PROPOFOL DRIP 100 ML IV PRN (11:05)
[2020-11-30] MEDS ORDERED: FUROSEMIDE 20 MG/2 ML VIAL IVP ONE (11:30)
[2020-11-30] MEDS: FLUCONAZOLE 200 mg/ NS 100 ML IV SCH (11:36)
[2020-11-30] MEDS ORDERED: POLYETHYLENE GLYCOL 3350, 17 GM/ POWD.PACK PO PRN (12:15)
[2020-11-30] MEDS ORDERED: POLYETHYLENE GLYCOL 3350, 17 GM/ POWD.PACK PO SCH (12:15)
[2020-11-30] MEDS ORDERED: POLYETHYLENE GLYCOL 3350, 17 GM/ POWD.PACK ONE (12:16)
[2020-11-30] MEDS: ACETAMINOPHEN 325 MG TABLET PO PRN ×2 (12:18→16:18)
[2020-11-30 19:34] LABS: HEMOGLOBIN 8.6 g/dL (12.0-16.0)
[2020-11-30] MEDS: ATORVASTATIN 20 MG TABLET PO SCH (21:24)
[2020-11-30] MEDS: FUROSEMIDE 20 MG/2 ML VIAL IVP SCH (21:24)
[2020-11-30] MEDS: amLODIPine BESYLATE 10 MG TABLET PO SCH (21:25)
[2020-12-01] VITALS (26 sets, daily range): BP systolic 91–133
[2020-12-01] MEDS: CHOLECALCIFEROL (VITAMIN D3) 2,000 UNIT TABLET PO SCH (08:39)
[2020-12-01] MEDS: APIXABAN 2.5 MG TABLET PO SCH (08:40)
[2020-12-01] MEDS: ASCORBIC ACID 500 MG TABLET PO SCH (08:40)
[2020-12-01] MEDS: DOCUSATE SODIUM 100 MG CAPSULE PO SCH (08:40)
[2020-12-01] MEDS: FUROSEMIDE 20 MG/2 ML VIAL IVP SCH (08:42)
[2020-12-01] MEDS: CEFEPIME 0.5 GM in D5W 50 ML IV SCH ×2 (08:44→20:53)
[2020-12-01] MEDS: QUEtiapine FUMARATE 25 MG TABLET PO SCH ×2 (09:00→20:53)
[2020-12-01] MEDS: D5/0.45 NS 1,000 ML IV SCH (09:15)
[2020-12-01] MEDS: FLUCONAZOLE 200 mg/ NS 100 ML IV SCH (11:42)
[2020-12-01] MEDS ORDERED: D5NS 1,000 ML IV SCH (17:30)
[2020-12-01] MEDS ORDERED: METOCLOPRAMIDE HCL 10 MG/2 ML VIAL IVP PRN (17:30)
[2020-12-01] MEDS: ATORVASTATIN 20 MG TABLET PO SCH (20:53)
[2020-12-01] MEDS: amLODIPine BESYLATE 10 MG TABLET PO SCH (21:00)
[2020-12-01 23:09] LABS: BASOPHILS # (AUTO) 0.1 K/uL (0.0-0.2); BASOPHILS % (AUTO) 0.9 % (0.0-2.0); EOSINOPHILS % (AUTO) 0.1 % (0.0-4.0); LYMPHOCYTES # (AUTO) 0.9 K/uL (1.0-5.5); LYMPHOCYTES % (AUTO) 6.7 % (20.5-51.5); MEAN CORPUSCULAR HEMOGLOBIN 29 pg (27-31); MEAN CORPUSCULAR HGB CONC 32 % (32-36); MEAN CORPUSCULAR VOLUME 93 fL (79.0-98.0); MONOCYTES # (AUTO) 1.2 K/uL (0.0-1.0); NEUTROPHILS # (AUTO) 11.3 K/uL (1.8-7.7); NEUTROPHILS % (AUTO) 83.3 % (40.0-70.0); PLATELET COUNT (AUTO) 150 K/uL (130-430); RED BLOOD CELL COUNT(AUTO) 2.08 MIL/uL (4.2-6.2); RED CELL DISTRIBUTION WIDTH 20.6 % (9.0-15.0); WHITE BLOOD COUNT (AUTO) 13.6 K/uL (4.8-10.8)
[2020-12-01 23:15] LABS: HEMATOCRIT 19.2 % (36-48); HEMOGLOBIN 6.1 g/dL (12.0-16.0)
[2020-12-01] MEDS ORDERED: PANTOPRAZOLE SODIUM 40 MG/VIAL (PROTONIX) ONE ×2 (23:48→23:51)
[2020-12-02] VITALS (33 sets, daily range): BP systolic 80–136
[2020-12-02] MEDS ORDERED: PANTOPRAZOLE SODIUM 80 MG in NS 100 ML IVP ONE (00:15)
[2020-12-02] MEDS: PANTOPRAZOLE SODIUM 40 MG in NS 50 ML IV SCH ×5 (00:44→19:39)
[2020-12-02] MEDS: FUROSEMIDE 20 MG/2 ML VIAL IVP SCH ×3 (02:00→20:18)
[2020-12-02] MEDS ORDERED: PANTOPRAZOLE SODIUM 40 MG/VIAL (PROTONIX) ONE ×2 (04:10→20:53)
[2020-12-02 05:46] LABS: BASOPHILS # (AUTO) 0.1 K/uL (0.0-0.2); BASOPHILS % (AUTO) 0.4 % (0.0-2.0); HEMATOCRIT 28.4 % (36-48); HEMOGLOBIN 9.4 g/dL (12.0-16.0); LYMPHOCYTES # (AUTO) 1.1 K/uL (1.0-5.5); LYMPHOCYTES % (AUTO) 6.8 % (20.5-51.5); MEAN CORPUSCULAR HEMOGLOBIN 30 pg (27-31); MEAN CORPUSCULAR HGB CONC 33 % (32-36); MEAN CORPUSCULAR VOLUME 90 fL (79.0-98.0); MONOCYTES # (AUTO) 1.2 K/uL (0.0-1.0); MONOCYTES % (AUTO) 7.1 % (1.7-9.3); NEUTROPHILS # (AUTO) 13.9 K/uL (1.8-7.7); NEUTROPHILS % (AUTO) 85.7 % (40.0-70.0); PLATELET COUNT (AUTO) 119 K/uL (130-430); RED BLOOD CELL COUNT(AUTO) 3.16 MIL/uL (4.2-6.2); RED CELL DISTRIBUTION WIDTH 16.9 % (9.0-15.0); WHITE BLOOD COUNT (AUTO) 16.2 K/uL (4.8-10.8)
[2020-12-02 05:50] LABS: ANION GAP 11 (5-15); CALCIUM 7.5 mg/dL (8.4-11.0); CHLORIDE 106 mmol/L (98-107); CREATININE 2.41 mg/dL (0.55-1.30); GLUCOSE 234 mg/dL (70-99); POTASSIUM 5.3 mmol/L (3.5-5.1); SODIUM SERUM 138 mmol/L (136-145)
[2020-12-02 05:57] LABS: UREA NITROGEN, BLOOD 129 mg/dL (8-21)
[2020-12-02 08:42] LABS: BASOPHILS # (AUTO) 0.1 K/uL (0.0-0.2); BASOPHILS % (AUTO) 0.6 % (0.0-2.0); HEMATOCRIT 28.2 % (36-48); HEMOGLOBIN 9.4 g/dL (12.0-16.0); LYMPHOCYTES # (AUTO) 1.1 K/uL (1.0-5.5); LYMPHOCYTES % (AUTO) 7.2 % (20.5-51.5); MEAN CORPUSCULAR HEMOGLOBIN 30 pg (27-31); MEAN CORPUSCULAR HGB CONC 33 % (32-36); MEAN CORPUSCULAR VOLUME 90 fL (79.0-98.0); MONOCYTES % (AUTO) 6.5 % (1.7-9.3); NEUTROPHILS # (AUTO) 12.9 K/uL (1.8-7.7); NEUTROPHILS % (AUTO) 85.7 % (40.0-70.0); PLATELET COUNT (AUTO) 128 K/uL (130-430); RED BLOOD CELL COUNT(AUTO) 3.12 MIL/uL (4.2-6.2); RED CELL DISTRIBUTION WIDTH 16.7 % (9.0-15.0); WHITE BLOOD COUNT (AUTO) 15.1 K/uL (4.8-10.8)
[2020-12-02] MEDS: NACL 0.9% 1,000 ML IV SCH ×2 (08:48→22:09)
[2020-12-02] MEDS: QUEtiapine FUMARATE 25 MG TABLET PO SCH ×2 (08:52→19:54)
[2020-12-02] MEDS: DOCUSATE SODIUM 100 MG CAPSULE PO SCH (08:52)
[2020-12-02] MEDS: ASCORBIC ACID 500 MG TABLET PO SCH (08:53)
[2020-12-02] MEDS: CHOLECALCIFEROL (VITAMIN D3) 2,000 UNIT TABLET PO SCH (08:53)
[2020-12-02] MEDS: CEFEPIME 0.5 GM in D5W 50 ML IV SCH ×2 (09:05→22:09)
[2020-12-02] MEDS: INSULIN REGULAR, HUMAN 100 UNITS/ML, 10 ML VIAL (humuLIN R) SUBCUT PRN ×3 (09:14→18:23)
[2020-12-02] MEDS ORDERED: SIMETHICONE 40 MG/0.6 ML ML ONE (15:06)
[2020-12-02] MEDS ORDERED: fentaNYL CITRATE/PF 100 MCG/2 ML AMP ONE (15:06)
[2020-12-02] MEDS ORDERED: MIDAZOLAM HCL 5 MG/5 ML VIAL ONE (15:06)
[2020-12-02 16:45] LABS: ANION GAP 13 (5-15); CALCIUM 7.4 mg/dL (8.4-11.0); CHLORIDE 108 mmol/L (98-107); CREATININE 2.48 mg/dL (0.55-1.30); GLUCOSE 202 mg/dL (70-99); POTASSIUM 5.2 mmol/L (3.5-5.1); SODIUM SERUM 141 mmol/L (136-145)
[2020-12-02 17:15] LABS: UREA NITROGEN, BLOOD 133 mg/dL (8-21)
[2020-12-02] MEDS ORDERED: INSULIN GLARGINE 100 UNITS/ML 10 ML VIAL SUBCUT ONE (17:15)
[2020-12-02 17:50] LABS: HEMATOCRIT 24.2 % (36-48); HEMOGLOBIN 8.1 g/dL (12.0-16.0); MEAN CORPUSCULAR HEMOGLOBIN 30 pg (27-31); MEAN CORPUSCULAR HGB CONC 33 % (32-36); MEAN CORPUSCULAR VOLUME 90 fL (79.0-98.0); PLATELET COUNT (AUTO) 166 K/uL (130-430); RED CELL DISTRIBUTION WIDTH 16.7 % (9.0-15.0); WHITE BLOOD COUNT (AUTO) 27.2 K/uL (4.8-10.8)
[2020-12-02 18:20] LABS: ALANINE AMINOTRANSFERASE 402 U/L (12-78); ALBUMIN 1.4 g/dL (3.4-4.8); ANION GAP 13 (5-15); ASPARTATE AMINOTRANSFERASE 351 U/L (10-37); CALCIUM 7.1 mg/dL (8.4-11.0); CHLORIDE 108 mmol/L (98-107); CREATININE 2.49 mg/dL (0.55-1.30); GLUCOSE 221 mg/dL (70-99); POTASSIUM 5.1 mmol/L (3.5-5.1); SODIUM SERUM 141 mmol/L (136-145); TOTAL BILIRUBIN 0.4 mg/dL (0.0-1.0)
[2020-12-02 18:37] LABS: INR 1.5 (0.8-1.2); PROTHROMBIN TIME 15.3 SECS (9.5-12.5)
[2020-12-02] MEDS: PROPOFOL DRIP 100 ML IV PRN ×2 (19:10→21:42)
[2020-12-02] MEDS ORDERED: PHYTONADIONE 10 MG/ML AMP SUBCUT ONE (19:15)
[2020-12-02 19:18] LABS: BAND % (MANUAL) 4 % (0-6); BASOPHILS % (MANUAL) 0 % (0-2); EOSINOPHILS % (MANUAL) 0 % (0-7); LYMPHOCYTES % (MANUAL) 2 % (20-46); MONOCYTES % (MANUAL) 4 % (0-11)
[2020-12-02 19:28] LABS: UREA NITROGEN, BLOOD 133 mg/dL (8-21)
[2020-12-02] MEDS ORDERED: PHYTONADIONE 10 MG/ML AMP ONE (19:42)
[2020-12-02] MEDS: ATORVASTATIN 20 MG TABLET PO SCH (19:53)
[2020-12-02] MEDS: amLODIPine BESYLATE 10 MG TABLET PO SCH (19:53)
[2020-12-02] MEDS: INSULIN GLARGINE 100 UNITS/ML 10 ML VIAL SUBCUT SCH (19:54)
[2020-12-02] MEDS: metroNIDAZOLE 500 mg/NS 100 ML IV SCH (22:09)
[2020-12-03] VITALS (38 sets, daily range): BP systolic 90–132
[2020-12-03] MEDS: PANTOPRAZOLE SODIUM 40 MG in NS 50 ML IV SCH ×4 (01:15→20:46)
[2020-12-03] MEDS: NOREPINEPHRINE BITARTRATE 4 MG in D5W 246 ML IV PRN (01:51)
[2020-12-03] MEDS ORDERED: NOREPINEPHRINE 4 MG/4 ML VIAL IV ONE (01:55)
[2020-12-03] MEDS: metroNIDAZOLE 500 mg/NS 100 ML IV SCH ×3 (05:13→22:03)
[2020-12-03 06:41] LABS: BASOPHILS # (AUTO) 0.1 K/uL (0.0-0.2); BASOPHILS % (AUTO) 0.3 % (0.0-2.0); EOSINOPHILS % (AUTO) 0.1 % (0.0-4.0); HEMATOCRIT 22.5 % (36-48); HEMOGLOBIN 7.4 g/dL (12.0-16.0); LYMPHOCYTES % (AUTO) 8.3 % (20.5-51.5); MEAN CORPUSCULAR HEMOGLOBIN 30 pg (27-31); MEAN CORPUSCULAR HGB CONC 33 % (32-36); MEAN CORPUSCULAR VOLUME 91 fL (79.0-98.0); MONOCYTES # (AUTO) 1.2 K/uL (0.0-1.0); MONOCYTES % (AUTO) 5.2 % (1.7-9.3); NEUTROPHILS # (AUTO) 20.2 K/uL (1.8-7.7); NEUTROPHILS % (AUTO) 86.1 % (40.0-70.0); PLATELET COUNT (AUTO) 180 K/uL (130-430); RED BLOOD CELL COUNT(AUTO) 2.49 MIL/uL (4.2-6.2); RED CELL DISTRIBUTION WIDTH 17.4 % (9.0-15.0); WHITE BLOOD COUNT (AUTO) 23.4 K/uL (4.8-10.8)
[2020-12-03 06:47] LABS: CALCIUM 7.2 mg/dL (8.4-11.0); CHLORIDE 109 mmol/L (98-107); GLUCOSE 186 mg/dL (70-99); POTASSIUM 4.7 mmol/L (3.5-5.1); SODIUM SERUM 142 mmol/L (136-145)
[2020-12-03 07:06] LABS: ANION GAP 13 (5-15)
[2020-12-03 07:12] LABS: UREA NITROGEN, BLOOD 132 mg/dL (8-21)
[2020-12-03] MEDS: ASCORBIC ACID 500 MG TABLET PO SCH (09:00)
[2020-12-03] MEDS: QUEtiapine FUMARATE 25 MG TABLET PO SCH ×2 (09:00→20:47)
[2020-12-03] MEDS: DOCUSATE SODIUM 100 MG CAPSULE PO SCH (09:00)
[2020-12-03] MEDS: CHOLECALCIFEROL (VITAMIN D3) 2,000 UNIT TABLET PO SCH (09:00)
[2020-12-03] MEDS: CEFEPIME 0.5 GM in D5W 50 ML IV SCH ×2 (09:54→20:46)
[2020-12-03] MEDS: D5/0.45 NS 1,000 ML IV SCH ×2 (09:55→22:03)
[2020-12-03] MEDS: FUROSEMIDE 20 MG/2 ML VIAL IVP SCH ×2 (09:55→22:04)
[2020-12-03] MEDS: PROPOFOL DRIP 100 ML IV PRN (10:19)
[2020-12-03] MEDS: INSULIN REGULAR, HUMAN 100 UNITS/ML, 10 ML VIAL (humuLIN R) SUBCUT PRN ×2 (14:51→18:26)
[2020-12-03 14:57] LABS: BASOPHILS # (AUTO) 0.1 K/uL (0.0-0.2); BASOPHILS % (AUTO) 0.5 % (0.0-2.0); EOSINOPHILS % (AUTO) 0.1 % (0.0-4.0); HEMOGLOBIN 8.8 g/dL (12.0-16.0); LYMPHOCYTES % (AUTO) 4.9 % (20.5-51.5); MEAN CORPUSCULAR HEMOGLOBIN 31 pg (27-31); MEAN CORPUSCULAR HGB CONC 34 % (32-36); MEAN CORPUSCULAR VOLUME 91 fL (79.0-98.0); MONOCYTES # (AUTO) 1.2 K/uL (0.0-1.0); MONOCYTES % (AUTO) 6.3 % (1.7-9.3); NEUTROPHILS # (AUTO) 17.4 K/uL (1.8-7.7); NEUTROPHILS % (AUTO) 88.2 % (40.0-70.0); PLATELET COUNT (AUTO) 173 K/uL (130-430); RED BLOOD CELL COUNT(AUTO) 2.87 MIL/uL (4.2-6.2); RED CELL DISTRIBUTION WIDTH 16.7 % (9.0-15.0); WHITE BLOOD COUNT (AUTO) 19.8 K/uL (4.8-10.8)
[2020-12-03] MEDS ORDERED: MENTHOL/ZINC OXIDE 113 GM OINT. TP PRN (17:15)
[2020-12-03] MEDS: BALSAM PERU/CASTOR OIL 60 GM OINT...G. TP SCH (17:54)
[2020-12-03] MEDS: ATORVASTATIN 20 MG TABLET PO SCH (20:47)
[2020-12-03] MEDS: amLODIPine BESYLATE 10 MG TABLET PO SCH (20:47)
[2020-12-03] MEDS: INSULIN GLARGINE 100 UNITS/ML 10 ML VIAL SUBCUT SCH (21:59)
[2020-12-03 22:33] LABS: BASOPHILS # (AUTO) 0.1 K/uL (0.0-0.2); BASOPHILS % (AUTO) 0.6 % (0.0-2.0); EOSINOPHILS % (AUTO) 0.2 % (0.0-4.0); HEMATOCRIT 26.6 % (36-48); HEMOGLOBIN 8.8 g/dL (12.0-16.0); LYMPHOCYTES # (AUTO) 1.2 K/uL (1.0-5.5); LYMPHOCYTES % (AUTO) 6.5 % (20.5-51.5); MEAN CORPUSCULAR HEMOGLOBIN 30 pg (27-31); MEAN CORPUSCULAR HGB CONC 33 % (32-36); MEAN CORPUSCULAR VOLUME 91 fL (79.0-98.0); MONOCYTES # (AUTO) 1.1 K/uL (0.0-1.0); NEUTROPHILS # (AUTO) 15.6 K/uL (1.8-7.7); NEUTROPHILS % (AUTO) 86.7 % (40.0-70.0); PLATELET COUNT (AUTO) 189 K/uL (130-430); RED BLOOD CELL COUNT(AUTO) 2.93 MIL/uL (4.2-6.2); RED CELL DISTRIBUTION WIDTH 16.5 % (9.0-15.0)
[2020-12-04] VITALS (29 sets, daily range): BP systolic 102–133
[2020-12-04] MEDS: PANTOPRAZOLE SODIUM 40 MG in NS 50 ML IV SCH ×5 (02:15→22:27)
[2020-12-04 04:51] LABS: BASOPHILS # (AUTO) 0.1 K/uL (0.0-0.2); BASOPHILS % (AUTO) 0.5 % (0.0-2.0); EOSINOPHILS # (AUTO) 0.1 K/uL (0.0-0.4); EOSINOPHILS % (AUTO) 0.4 % (0.0-4.0); HEMATOCRIT 26.1 % (36-48); HEMOGLOBIN 8.6 g/dL (12.0-16.0); LYMPHOCYTES % (AUTO) 5.8 % (20.5-51.5); MEAN CORPUSCULAR HEMOGLOBIN 30 pg (27-31); MEAN CORPUSCULAR HGB CONC 33 % (32-36); MEAN CORPUSCULAR VOLUME 91 fL (79.0-98.0); NEUTROPHILS # (AUTO) 15.1 K/uL (1.8-7.7); NEUTROPHILS % (AUTO) 87.3 % (40.0-70.0); PLATELET COUNT (AUTO) 195 K/uL (130-430); RED BLOOD CELL COUNT(AUTO) 2.88 MIL/uL (4.2-6.2); RED CELL DISTRIBUTION WIDTH 16.8 % (9.0-15.0); WHITE BLOOD COUNT (AUTO) 17.4 K/uL (4.8-10.8)
[2020-12-04 05:04] LABS: ANION GAP 10 (5-15); CALCIUM 7.3 mg/dL (8.4-11.0); CHLORIDE 112 mmol/L (98-107); CREATININE 2.39 mg/dL (0.55-1.30); GLUCOSE 156 mg/dL (70-99); POTASSIUM 3.3 mmol/L (3.5-5.1); SODIUM SERUM 145 mmol/L (136-145)
[2020-12-04 05:06] LABS: UREA NITROGEN, BLOOD 124 mg/dL (8-21)
[2020-12-04] MEDS: metroNIDAZOLE 500 mg/NS 100 ML IV SCH ×3 (05:16→22:26)
[2020-12-04] MEDS ORDERED: POTASSIUM CHLORIDE 20 MEQ in NS 250 ML IV ONE (08:30)
[2020-12-04] MEDS: QUEtiapine FUMARATE 25 MG TABLET PO SCH ×2 (08:55→20:08)
[2020-12-04] MEDS: CHOLECALCIFEROL (VITAMIN D3) 2,000 UNIT TABLET PO SCH (08:59)
[2020-12-04] MEDS: FUROSEMIDE 20 MG/2 ML VIAL IVP SCH ×2 (08:59→22:26)
[2020-12-04] MEDS ORDERED: NACL 0.9% 1,000 ML IV SCH (09:00)
[2020-12-04] MEDS: ASCORBIC ACID 500 MG TABLET PO SCH (09:00)
[2020-12-04] MEDS: DOCUSATE SODIUM 100 MG CAPSULE PO SCH (09:00)
[2020-12-04] MEDS: BALSAM PERU/CASTOR OIL 60 GM OINT...G. TP SCH (09:04)
[2020-12-04] MEDS: CEFEPIME 0.5 GM in D5W 50 ML IV SCH ×2 (09:07→20:31)
[2020-12-04] MEDS: NACL 0.9% 1,000 ML IV SCH (09:20)
[2020-12-04 14:47] LABS: BASOPHILS # (AUTO) 0.1 K/uL (0.0-0.2); BASOPHILS % (AUTO) 0.7 % (0.0-2.0); EOSINOPHILS # (AUTO) 0.1 K/uL (0.0-0.4); EOSINOPHILS % (AUTO) 0.5 % (0.0-4.0); HEMATOCRIT 27.9 % (36-48); HEMOGLOBIN 9.3 g/dL (12.0-16.0); LYMPHOCYTES # (AUTO) 0.9 K/uL (1.0-5.5); LYMPHOCYTES % (AUTO) 5.8 % (20.5-51.5); MEAN CORPUSCULAR HEMOGLOBIN 31 pg (27-31); MEAN CORPUSCULAR HGB CONC 33 % (32-36); MEAN CORPUSCULAR VOLUME 92 fL (79.0-98.0); MONOCYTES # (AUTO) 0.7 K/uL (0.0-1.0); MONOCYTES % (AUTO) 4.3 % (1.7-9.3); NEUTROPHILS # (AUTO) 13.6 K/uL (1.8-7.7); NEUTROPHILS % (AUTO) 88.7 % (40.0-70.0); PLATELET COUNT (AUTO) 197 K/uL (130-430); RED BLOOD CELL COUNT(AUTO) 3.03 MIL/uL (4.2-6.2); RED CELL DISTRIBUTION WIDTH 16.9 % (9.0-15.0); WHITE BLOOD COUNT (AUTO) 15.3 K/uL (4.8-10.8)
[2020-12-04] MEDS: amLODIPine BESYLATE 10 MG TABLET PO SCH (20:07)
[2020-12-04] MEDS: ATORVASTATIN 20 MG TABLET PO SCH (20:07)
[2020-12-04] MEDS: INSULIN GLARGINE 100 UNITS/ML 10 ML VIAL SUBCUT SCH (20:27)
[2020-12-04 22:01] LABS: BASOPHILS # (AUTO) 0.1 K/uL (0.0-0.2); BASOPHILS % (AUTO) 0.4 % (0.0-2.0); EOSINOPHILS # (AUTO) 0.1 K/uL (0.0-0.4); EOSINOPHILS % (AUTO) 0.7 % (0.0-4.0); HEMATOCRIT 23.9 % (36-48); HEMOGLOBIN 7.8 g/dL (12.0-16.0); LYMPHOCYTES # (AUTO) 0.7 K/uL (1.0-5.5); LYMPHOCYTES % (AUTO) 5.2 % (20.5-51.5); MEAN CORPUSCULAR HEMOGLOBIN 30 pg (27-31); MEAN CORPUSCULAR HGB CONC 33 % (32-36); MEAN CORPUSCULAR VOLUME 92 fL (79.0-98.0); MONOCYTES # (AUTO) 0.8 K/uL (0.0-1.0); MONOCYTES % (AUTO) 5.9 % (1.7-9.3); NEUTROPHILS # (AUTO) 12.3 K/uL (1.8-7.7); NEUTROPHILS % (AUTO) 87.8 % (40.0-70.0); PLATELET COUNT (AUTO) 204 K/uL (130-430); RED BLOOD CELL COUNT(AUTO) 2.61 MIL/uL (4.2-6.2); RED CELL DISTRIBUTION WIDTH 16.7 % (9.0-15.0)
[2020-12-05] VITALS (32 sets, daily range): BP systolic 92–119
[2020-12-05] MEDS: PANTOPRAZOLE SODIUM 40 MG in NS 50 ML IV SCH ×5 (03:15→23:56)
[2020-12-05] MEDS: NACL 0.9% 1,000 ML IV SCH (05:48)
[2020-12-05] MEDS: metroNIDAZOLE 500 mg/NS 100 ML IV SCH ×3 (05:49→22:00)
[2020-12-05 06:49] LABS: ANION GAP 13 (5-15); CALCIUM 7.2 mg/dL (8.4-11.0); CHLORIDE 118 mmol/L (98-107); GLUCOSE 96 mg/dL (70-99); SODIUM SERUM 154 mmol/L (136-145)
[2020-12-05 06:53] LABS: BASOPHILS # (AUTO) 0.1 K/uL (0.0-0.2); BASOPHILS % (AUTO) 0.6 % (0.0-2.0); EOSINOPHILS # (AUTO) 0.1 K/uL (0.0-0.4); EOSINOPHILS % (AUTO) 0.6 % (0.0-4.0); HEMOGLOBIN 7.9 g/dL (12.0-16.0); LYMPHOCYTES # (AUTO) 0.8 K/uL (1.0-5.5); MEAN CORPUSCULAR HEMOGLOBIN 30 pg (27-31); MEAN CORPUSCULAR HGB CONC 33 % (32-36); MEAN CORPUSCULAR VOLUME 92 fL (79.0-98.0); MONOCYTES # (AUTO) 0.7 K/uL (0.0-1.0); MONOCYTES % (AUTO) 5.2 % (1.7-9.3); NEUTROPHILS # (AUTO) 11.9 K/uL (1.8-7.7); NEUTROPHILS % (AUTO) 87.6 % (40.0-70.0); PLATELET COUNT (AUTO) 213 K/uL (130-430); RED BLOOD CELL COUNT(AUTO) 2.62 MIL/uL (4.2-6.2); RED CELL DISTRIBUTION WIDTH 16.8 % (9.0-15.0); WHITE BLOOD COUNT (AUTO) 13.5 K/uL (4.8-10.8)
[2020-12-05 07:08] LABS: UREA NITROGEN, BLOOD 107 mg/dL (8-21)
[2020-12-05] MEDS: DOCUSATE SODIUM 100 MG CAPSULE PO SCH (08:40)
[2020-12-05] MEDS: CHOLECALCIFEROL (VITAMIN D3) 2,000 UNIT TABLET PO SCH (08:40)
[2020-12-05] MEDS: QUEtiapine FUMARATE 25 MG TABLET PO SCH ×2 (08:40→21:00)
[2020-12-05] MEDS: ASCORBIC ACID 500 MG TABLET PO SCH (08:40)
[2020-12-05] MEDS: CEFEPIME 0.5 GM in D5W 50 ML IV SCH ×2 (08:55→21:00)
[2020-12-05] MEDS: FUROSEMIDE 20 MG/2 ML VIAL IVP SCH ×2 (08:57→21:00)
[2020-12-05] MEDS: BALSAM PERU/CASTOR OIL 60 GM OINT...G. TP SCH (08:58)
[2020-12-05] MEDS ORDERED: D5/0.45 NS 1,000 ML IV SCH (09:00)
[2020-12-05] MEDS ORDERED: KCL 40 mEq in 100 mL (PREMIX) 100 ML IV ONE (09:15)
[2020-12-05 09:19] LABS: PHOSPHORUS 4.1 mg/dL (2.7-4.5)
[2020-12-05 11:12] LABS: HEMATOCRIT 25.7 % (36-48); HEMOGLOBIN 8.4 g/dL (12.0-16.0)
[2020-12-05] MEDS ORDERED: D5W 1,000 ML IV SCH (16:30)
[2020-12-05] MEDS ORDERED: *TPN PER PHARMACY XX PRN (21:00)
[2020-12-05] MEDS: TPN NEPHRAMINE IV SCH ×9 (21:00)
[2020-12-05] MEDS: [UNRECOGNIZED DRUG - OTHER] IV SCH ×9 (21:00)
[2020-12-05] MEDS: ATORVASTATIN 20 MG TABLET PO SCH (21:00)
[2020-12-05] MEDS: amLODIPine BESYLATE 10 MG TABLET PO SCH (21:00)
[2020-12-05] MEDS: K PHOS IV SCH ×9 (21:00)
[2020-12-05] MEDS: FAT EMULSIONS 250 ML IV SCH (21:00)
[2020-12-05] MEDS: INSULIN GLARGINE 100 UNITS/ML 10 ML VIAL SUBCUT SCH (21:00)
[2020-12-05] MEDS: POTASSIUM ACETATE IV SCH ×9 (21:00)
[2020-12-06] VITALS (30 sets, daily range): BP systolic 103–188
[2020-12-06] MEDS: metroNIDAZOLE 500 mg/NS 100 ML IV SCH ×3 (06:51→22:31)
[2020-12-06] MEDS: INSULIN REGULAR, HUMAN 100 UNITS/ML, 10 ML VIAL (humuLIN R) SUBCUT PRN ×3 (06:52→17:38)
[2020-12-06 07:02] LABS: BASOPHILS % (AUTO) 0.3 % (0.0-2.0); EOSINOPHILS # (AUTO) 0.1 K/uL (0.0-0.4); EOSINOPHILS % (AUTO) 0.6 % (0.0-4.0); HEMATOCRIT 23.1 % (36-48); HEMOGLOBIN 7.5 g/dL (12.0-16.0); LYMPHOCYTES # (AUTO) 0.7 K/uL (1.0-5.5); LYMPHOCYTES % (AUTO) 6.5 % (20.5-51.5); MEAN CORPUSCULAR HEMOGLOBIN 30 pg (27-31); MEAN CORPUSCULAR HGB CONC 32 % (32-36); MEAN CORPUSCULAR VOLUME 94 fL (79.0-98.0); MONOCYTES # (AUTO) 0.5 K/uL (0.0-1.0); MONOCYTES % (AUTO) 4.7 % (1.7-9.3); NEUTROPHILS # (AUTO) 9.8 K/uL (1.8-7.7); NEUTROPHILS % (AUTO) 87.9 % (40.0-70.0); PLATELET COUNT (AUTO) 223 K/uL (130-430); RED BLOOD CELL COUNT(AUTO) 2.47 MIL/uL (4.2-6.2); RED CELL DISTRIBUTION WIDTH 16.8 % (9.0-15.0); WHITE BLOOD COUNT (AUTO) 11.1 K/uL (4.8-10.8)
[2020-12-06 07:33] LABS: ANION GAP 10 (5-15); CALCIUM 7.3 mg/dL (8.4-11.0); CREATININE 1.84 mg/dL (0.55-1.30); GLUCOSE 293 mg/dL (70-99); PHOSPHORUS 2.9 mg/dL (2.7-4.5); POTASSIUM 3.1 mmol/L (3.5-5.1); SODIUM SERUM 153 mmol/L (136-145); UREA NITROGEN, BLOOD 85 mg/dL (8-21)
[2020-12-06 07:40] LABS: CHLORIDE 120 mmol/L (98-107)
[2020-12-06] MEDS: PANTOPRAZOLE SODIUM 40 MG in NS 50 ML IV SCH ×4 (08:12→21:00)
[2020-12-06] MEDS ORDERED: KCL 40 mEq in 100 mL (PREMIX) 100 ML IV ONE (08:30)
[2020-12-06] MEDS: CHOLECALCIFEROL (VITAMIN D3) 2,000 UNIT TABLET PO SCH (09:00)
[2020-12-06] MEDS: QUEtiapine FUMARATE 25 MG TABLET PO SCH ×2 (09:00→22:20)
[2020-12-06] MEDS: ASCORBIC ACID 500 MG TABLET PO SCH (09:00)
[2020-12-06] MEDS: DOCUSATE SODIUM 100 MG CAPSULE PO SCH (09:00)
[2020-12-06] MEDS: 0.45% NACL 1,000 ML IV SCH (09:39)
[2020-12-06] MEDS: CEFEPIME 0.5 GM in D5W 50 ML IV SCH ×2 (09:42→22:19)
[2020-12-06] MEDS: FUROSEMIDE 20 MG/2 ML VIAL IVP SCH ×2 (09:46→22:19)
[2020-12-06] MEDS: BALSAM PERU/CASTOR OIL 60 GM OINT...G. TP SCH (09:49)
[2020-12-06] MEDS ORDERED: INSULIN GLARGINE 100 UNITS/ML 10 ML VIAL SUBCUT ONE (12:00)
[2020-12-06 18:55] LABS: HEMATOCRIT 23.3 % (36-48); HEMOGLOBIN 7.5 g/dL (12.0-16.0)
[2020-12-06] MEDS: TPN NEPHRAMINE IV SCH ×18 (20:54→21:00)
[2020-12-06] MEDS: POTASSIUM ACETATE IV SCH ×18 (20:54→21:00)
[2020-12-06] MEDS: [UNRECOGNIZED DRUG - OTHER] IV SCH ×9 (20:54)
[2020-12-06] MEDS: K PHOS IV SCH ×18 (20:54→21:00)
[2020-12-06] MEDS ORDERED: INSULIN GLARGINE 100 UNITS/ML 10 ML VIAL SUBCUT SCH (21:00)
[2020-12-06] MEDS: [UNRECOGNIZED DRUG - OTHER] IV SCH ×9 (21:00)
[2020-12-06] MEDS: FAT EMULSIONS 250 ML IV SCH (21:00)
[2020-12-06] MEDS: ATORVASTATIN 20 MG TABLET PO SCH (22:19)
[2020-12-06] MEDS: amLODIPine BESYLATE 10 MG TABLET PO SCH (22:20)
[2020-12-07] VITALS (29 sets, daily range): BP systolic 96–122
[2020-12-07] MEDS: K PHOS IV SCH ×9 (01:30)
[2020-12-07] MEDS: [UNRECOGNIZED DRUG - OTHER] IV SCH ×9 (01:30)
[2020-12-07] MEDS: POTASSIUM ACETATE IV SCH ×9 (01:30)
[2020-12-07] MEDS: TPN NEPHRAMINE IV SCH ×9 (01:30)
[2020-12-07] MEDS: PANTOPRAZOLE SODIUM 40 MG in NS 50 ML IV SCH ×5 (02:36→20:18)
[2020-12-07] MEDS: 0.45% NACL 1,000 ML IV SCH ×2 (04:00→12:31)
[2020-12-07] MEDS: metroNIDAZOLE 500 mg/NS 100 ML IV SCH ×3 (06:22→22:00)
[2020-12-07] MEDS: INSULIN REGULAR, HUMAN 100 UNITS/ML, 10 ML VIAL (humuLIN R) SUBCUT PRN ×3 (06:23→17:38)
[2020-12-07 06:37] LABS: BASOPHILS % (AUTO) 0.3 % (0.0-2.0); EOSINOPHILS # (AUTO) 0.2 K/uL (0.0-0.4); EOSINOPHILS % (AUTO) 1.7 % (0.0-4.0); HEMATOCRIT 23.5 % (36-48); HEMOGLOBIN 7.4 g/dL (12.0-16.0); LYMPHOCYTES % (AUTO) 7.6 % (20.5-51.5); MEAN CORPUSCULAR HEMOGLOBIN 30 pg (27-31); MEAN CORPUSCULAR HGB CONC 32 % (32-36); MEAN CORPUSCULAR VOLUME 95 fL (79.0-98.0); MONOCYTES # (AUTO) 0.6 K/uL (0.0-1.0); MONOCYTES % (AUTO) 4.8 % (1.7-9.3); NEUTROPHILS # (AUTO) 10.7 K/uL (1.8-7.7); NEUTROPHILS % (AUTO) 85.6 % (40.0-70.0); PLATELET COUNT (AUTO) 240 K/uL (130-430); RED BLOOD CELL COUNT(AUTO) 2.48 MIL/uL (4.2-6.2); RED CELL DISTRIBUTION WIDTH 17.6 % (9.0-15.0); WHITE BLOOD COUNT (AUTO) 12.5 K/uL (4.8-10.8)
[2020-12-07 07:27] LABS: ALANINE AMINOTRANSFERASE 293 U/L (12-78); ALBUMIN 1.6 g/dL (3.4-4.8); ANION GAP 11 (5-15); ASPARTATE AMINOTRANSFERASE 44 U/L (10-37); CALCIUM 7.2 mg/dL (8.4-11.0); CHLORIDE 119 mmol/L (98-107); CREATININE 1.51 mg/dL (0.55-1.30); GLUCOSE 302 mg/dL (70-99); PHOSPHORUS 2.4 mg/dL (2.7-4.5); POTASSIUM 3.4 mmol/L (3.5-5.1); SODIUM SERUM 154 mmol/L (136-145); TOTAL BILIRUBIN 0.4 mg/dL (0.0-1.0); UREA NITROGEN, BLOOD 63 mg/dL (8-21)
[2020-12-07] MEDS: DOCUSATE SODIUM 100 MG CAPSULE PO SCH (07:59)
[2020-12-07] MEDS: CEFEPIME 0.5 GM in D5W 50 ML IV SCH ×2 (08:15→21:00)
[2020-12-07] MEDS: CHOLECALCIFEROL (VITAMIN D3) 2,000 UNIT TABLET PO SCH (08:16)
[2020-12-07] MEDS: FUROSEMIDE 20 MG/2 ML VIAL IVP SCH ×2 (08:16→21:00)
[2020-12-07] MEDS: ASCORBIC ACID 500 MG TABLET PO SCH (08:17)
[2020-12-07] MEDS: QUEtiapine FUMARATE 25 MG TABLET PO SCH ×2 (08:17→21:00)
[2020-12-07] MEDS: BALSAM PERU/CASTOR OIL 60 GM OINT...G. TP SCH (08:18)
[2020-12-07] MEDS: FAT EMULSIONS 250 ML IV SCH (10:36)
[2020-12-07] MEDS ORDERED: K PHOS IV SCH ×9 (21:00)
[2020-12-07] MEDS ORDERED: POTASSIUM ACETATE IV SCH ×9 (21:00)
[2020-12-07] MEDS: ATORVASTATIN 20 MG TABLET PO SCH (21:00)
[2020-12-07] MEDS ORDERED: INSULIN GLARGINE 100 UNITS/ML 10 ML VIAL SUBCUT SCH (21:00)
[2020-12-07] MEDS ORDERED: [UNRECOGNIZED DRUG - OTHER] IV SCH ×9 (21:00)
[2020-12-07] MEDS ORDERED: TPN NEPHRAMINE IV SCH ×9 (21:00)
[2020-12-07] MEDS: amLODIPine BESYLATE 10 MG TABLET PO SCH (21:00)
[2020-12-08] VITALS (23 sets, daily range): BP systolic 101–131
[2020-12-08] MEDS: INSULIN REGULAR, HUMAN 100 UNITS/ML, 10 ML VIAL (humuLIN R) SUBCUT PRN ×4 (00:17→17:52)
[2020-12-08] MEDS: PANTOPRAZOLE SODIUM 40 MG in NS 50 ML IV SCH ×6 (01:29→23:57)
[2020-12-08] MEDS: metroNIDAZOLE 500 mg/NS 100 ML IV SCH ×3 (06:08→23:57)
[2020-12-08 06:35] LABS: ALANINE AMINOTRANSFERASE 191 U/L (12-78); ALBUMIN 1.4 g/dL (3.4-4.8); ANION GAP 7 (5-15); CALCIUM 7.1 mg/dL (8.4-11.0); CHLORIDE 117 mmol/L (98-107); CREATININE 1.39 mg/dL (0.55-1.30); GLUCOSE 246 mg/dL (70-99); PHOSPHORUS 2.5 mg/dL (2.7-4.5); POTASSIUM 3.3 mmol/L (3.5-5.1); SODIUM SERUM 151 mmol/L (136-145); TOTAL BILIRUBIN 0.3 mg/dL (0.0-1.0); UREA NITROGEN, BLOOD 47 mg/dL (8-21)
[2020-12-08] MEDS: DOCUSATE SODIUM 100 MG CAPSULE PO SCH (07:32)
[2020-12-08] MEDS: QUEtiapine FUMARATE 25 MG TABLET PO SCH ×2 (08:04→21:00)
[2020-12-08 08:19] LABS: ASPARTATE AMINOTRANSFERASE 21 U/L (10-37)
[2020-12-08] MEDS: ASCORBIC ACID 500 MG TABLET PO SCH (08:26)
[2020-12-08] MEDS: FUROSEMIDE 20 MG/2 ML VIAL IVP SCH ×2 (08:26→22:48)
[2020-12-08] MEDS: CHOLECALCIFEROL (VITAMIN D3) 2,000 UNIT TABLET PO SCH (08:27)
[2020-12-08] MEDS: CEFEPIME 0.5 GM in D5W 50 ML IV SCH ×2 (08:34→22:44)
[2020-12-08] MEDS: BALSAM PERU/CASTOR OIL 60 GM OINT...G. TP SCH ×2 (08:50→16:45)
[2020-12-08] MEDS: FAT EMULSIONS 250 ML IV SCH (09:47)
[2020-12-08] MEDS ORDERED: MORPHINE 2 MG/ML INJ. SYRINGE IVP ONE (11:30)
[2020-12-08] MEDS ORDERED: NALOXONE HCL 0.4 MG/ML AMP (NARCAN) IVP PRN (11:30)
[2020-12-08] MEDS: 0.45% NACL 1,000 ML IV SCH (12:54)
[2020-12-08] MEDS ORDERED: K PHOS IV SCH ×10 (21:00)
[2020-12-08] MEDS ORDERED: TPN NEPHRAMINE IV SCH ×10 (21:00)
[2020-12-08] MEDS ORDERED: POTASSIUM ACETATE IV SCH ×10 (21:00)
[2020-12-08] MEDS: ATORVASTATIN 20 MG TABLET PO SCH (21:00)
[2020-12-08] MEDS ORDERED: INSULIN GLARGINE 100 UNITS/ML 10 ML VIAL SUBCUT SCH (21:00)
[2020-12-08] MEDS ORDERED: [UNRECOGNIZED DRUG - OTHER] IV SCH ×10 (21:00)
[2020-12-08] MEDS: amLODIPine BESYLATE 10 MG TABLET PO SCH (21:00)
[2020-12-09] VITALS: BP_SYST 127
[2020-12-09] MEDS: INSULIN REGULAR, HUMAN 100 UNITS/ML, 10 ML VIAL (humuLIN R) SUBCUT PRN ×2 (00:05→05:58)
[2020-12-09] MEDS: metroNIDAZOLE 500 mg/NS 100 ML IV SCH ×2 (05:53→13:19)
[2020-12-09] MEDS: PANTOPRAZOLE SODIUM 40 MG in NS 50 ML IV SCH ×2 (06:00→13:06)
[2020-12-09 07:08] LABS: BASOPHILS % (AUTO) 0.4 % (0.0-2.0); EOSINOPHILS # (AUTO) 0.2 K/uL (0.0-0.4); EOSINOPHILS % (AUTO) 1.9 % (0.0-4.0); HEMATOCRIT 25.2 % (36-48); HEMOGLOBIN 8.2 g/dL (12.0-16.0); LYMPHOCYTES % (AUTO) 9.5 % (20.5-51.5); MEAN CORPUSCULAR HEMOGLOBIN 30 pg (27-31); MEAN CORPUSCULAR HGB CONC 33 % (32-36); MEAN CORPUSCULAR VOLUME 92 fL (79.0-98.0); MONOCYTES # (AUTO) 0.5 K/uL (0.0-1.0); NEUTROPHILS # (AUTO) 8.3 K/uL (1.8-7.7); NEUTROPHILS % (AUTO) 83.2 % (40.0-70.0); PLATELET COUNT (AUTO) 229 K/uL (130-430); RED BLOOD CELL COUNT(AUTO) 2.74 MIL/uL (4.2-6.2); RED CELL DISTRIBUTION WIDTH 16.4 % (9.0-15.0)
[2020-12-09 07:17] LABS: ANION GAP 9 (5-15); CALCIUM 7.1 mg/dL (8.4-11.0); CHLORIDE 112 mmol/L (98-107); CREATININE 1.22 mg/dL (0.55-1.30); GLUCOSE 221 mg/dL (70-99); PHOSPHORUS 2.9 mg/dL (2.7-4.5); POTASSIUM 3.7 mmol/L (3.5-5.1); SODIUM SERUM 147 mmol/L (136-145); UREA NITROGEN, BLOOD 37 mg/dL (8-21)
[2020-12-09 08:00] VITALS: BP_SYST 119
[2020-12-09] MEDS: FAT EMULSIONS 250 ML IV SCH (08:02)
[2020-12-09] MEDS: DOCUSATE SODIUM 100 MG CAPSULE PO SCH (09:00)
[2020-12-09] MEDS: CHOLECALCIFEROL (VITAMIN D3) 2,000 UNIT TABLET PO SCH (09:00)
[2020-12-09] MEDS: QUEtiapine FUMARATE 25 MG TABLET PO SCH (09:00)
[2020-12-09] MEDS: ASCORBIC ACID 500 MG TABLET PO SCH (09:00)
[2020-12-09] MEDS: CEFEPIME 0.5 GM in D5W 50 ML IV SCH (09:24)
[2020-12-09] MEDS: BALSAM PERU/CASTOR OIL 60 GM OINT...G. TP SCH (09:25)
[2020-12-09] MEDS: FUROSEMIDE 20 MG/2 ML VIAL IVP SCH (09:25)
[2020-12-09 12:00] VITALS: BP_SYST 138
[2020-12-09] MEDS ORDERED: PRO40 PO (12:38)
[2020-12-09] MEDS ORDERED: ROCPM1 IV (14:35)
[2020-12-09 16:45] VITALS: BP_SYST 132
[2020-12-09 18:37] VITALS: BP_SYST 132
[2020-12-09] MEDS ORDERED: [UNRECOGNIZED DRUG - OTHER] IV SCH ×9 (21:00)
[2020-12-09] MEDS ORDERED: TPN NEPHRAMINE IV SCH ×9 (21:00)
[2020-12-09] MEDS ORDERED: POTASSIUM ACETATE IV SCH ×9 (21:00)
[2020-12-09] MEDS ORDERED: K PHOS IV SCH ×9 (21:00)
== END 2020-12-09 20:10 | DRG 207 ==
LOC: SED 11:15 → STU 13:58 → SIC 11-24 23:40 → STU 12-08 18:45 → SMU 12-08 19:00 → UNDODISIN 12-09 20:10
PROVIDERS: ADMIT General Practice; ATTEND General Practice
PROC: 0W993ZZ Drainage of Right Pleural Cavity, Percutaneous Approach (ICD-10-PCS; 2020-11-12)
PROC: 5A09457 Assistance with Respiratory Ventilation, 24-96 Consecutive Hours, Continuous Positive Airway Pressure (ICD-10-PCS; 2020-11-16)
PROC: 5A09457 Assistance with Respiratory Ventilation, 24-96 Consecutive Hours, Continuous Positive Airway Pressure (ICD-10-PCS; 2020-11-18)
PROC: 5A09457 Assistance with Respiratory Ventilation, 24-96 Consecutive Hours, Continuous Positive Airway Pressure (ICD-10-PCS; 2020-11-20)
PROC: 5A09457 Assistance with Respiratory Ventilation, 24-96 Consecutive Hours, Continuous Positive Airway Pressure (ICD-10-PCS; 2020-11-22)
PROC: 5A12012 Performance of Cardiac Output, Single, Manual (ICD-10-PCS; principal; 2020-11-24)
PROC: 5A1955Z Respiratory Ventilation, Greater than 96 Consecutive Hours (ICD-10-PCS; 2020-11-24)
PROC: 0BH17EZ Insertion of Endotracheal Airway into Trachea, Via Natural or Artificial Opening (ICD-10-PCS; 2020-11-24)
PROC: 5A09357 Assistance with Respiratory Ventilation, Less than 24 Consecutive Hours, Continuous Positive Airway Pressure (ICD-10-PCS; 2020-11-24)
PROC: 30233N1 Transfusion of Nonautologous Red Blood Cells into Peripheral Vein, Percutaneous Approach (ICD-10-PCS; 2020-11-30)
PROC: 0W3P8ZZ Control Bleeding in Gastrointestinal Tract, Via Natural or Artificial Opening Endoscopic (ICD-10-PCS; 2020-12-02)
PROC: 3E0G8GC Introduction of Other Therapeutic Substance into Upper GI, Via Natural or Artificial Opening Endoscopic (ICD-10-PCS; 2020-12-02)
PROC: 3E0336Z Introduction of Nutritional Substance into Peripheral Vein, Percutaneous Approach (ICD-10-PCS; 2020-12-07)
DX: J69.0 Pneumonitis due to inhalation of food and vomit (principal); J96.01 Acute respiratory failure with hypoxia; I50.43 Acute on chronic combined systolic (congestive) and diastolic (congestive) heart failure; N17.0 Acute kidney failure with tubular necrosis; I46.9 Cardiac arrest, cause unspecified; K26.4 Chronic or unspecified duodenal ulcer with hemorrhage; E43 Unspecified severe protein-calorie malnutrition; A41.9 Sepsis, unspecified organism; R65.21 Severe sepsis with septic shock; E87.1 Hypo-osmolality and hyponatremia; Z99.11 Dependence on respirator [ventilator] status; I48.20 Chronic atrial fibrillation, unspecified; N18.4 Chronic kidney disease, stage 4 (severe); I13.0 Hypertensive heart and chronic kidney disease with heart failure and stage 1 through stage 4 chronic kidney disease, or unspecified chronic kidney disease; F03.91 Unspecified dementia, unspecified severity, with behavioral disturbance; J91.8 Pleural effusion in other conditions classified elsewhere; J15.9 Unspecified bacterial pneumonia; Z86.16 Personal history of COVID-19; I25.5 Ischemic cardiomyopathy; E87.5 Hyperkalemia; E11.22 Type 2 diabetes mellitus with diabetic chronic kidney disease; D64.9 Anemia, unspecified; I25.10 Atherosclerotic heart disease of native coronary artery without angina pectoris; E86.0 Dehydration; Y95 Nosocomial condition; R00.1 Bradycardia, unspecified; Z20.822 Contact with and (suspected) exposure to COVID-19; K25.9 Gastric ulcer, unspecified as acute or chronic, without hemorrhage or perforation; Z66 Do not resuscitate; Z87.891 Personal history of nicotine dependence; Z87.01 Personal history of pneumonia (recurrent); Z95.2 Presence of prosthetic heart valve; Z95.1 Presence of aortocoronary bypass graft; Z86.73 Personal history of transient ischemic attack (TIA), and cerebral infarction without residual deficits; Z93.1 Gastrostomy status; Z79.01 Long term (current) use of anticoagulants; Z79.899 Other long term (current) drug therapy; Z68.30 Body mass index [BMI] 30.0-30.9, adult; Z87.440 Personal history of urinary (tract) infections
CPT/HCPCS: 32555; 36415; 36600; 43255; 71045; 74018; 76604; 80048; 80053; 81003; 82272; 82607; 82803-TC; 82947-TC; 82962; 83540-TC; 83550-TC; 83605; 83735-TC; 83880; 84100-TC; 84157-TC; 84443-TC; 84478-TC; 84484; 85007; 85018-TC; 85025; 85027; 85610-TC; 85651-TC; 85730-TC; 86480; 86886; 86900; 86901; 86920; 87040-TC; 87070-TC; 87081; 87205-TC; 87305; 87449; 88108; 88305; 89051-TC; 89060-TC; 92610-GN; 93005; 93306; 94002; 94003; 94640; 94660; 94760; 96361; 96374; 96375; 99291; C1729; C9113; G0378; J0456; J0610; J0692; J0696; J1200; J1450; J1630; J1815; J1885; J1940; J2060; J2250; J2704; J3010; J3430; J3475; J3480; J3490; J7050; J7060; P9021; U0003